=== PATIENT | female | born 1950 | race Caucasian/White ===

== ENCOUNTER 2017-11-13 17:36 | Emergency (ER) | payer OTHER ==
[2017-11-13 17:55] VITALS: BP 138/61; PULSE 81; TEMP 98.1; BMI 23.8
--- NOTE | 2017-11-13 19:27 | PDOC ---
History of Present Illness - General Chief Complaint: Pain Stated Complaint: CHRONIC ABDOMINAL PAIN WITH NAUSEA Time Seen by Provider: 11/13/17 19:25 - History of Present Illness Initial Comments: 11/13/17 20:19 Patient left the ED prior to my evaluation. Past History - Past Medical History Allergies/Adverse Reactions: Allergies Allergy/AdvReac Type Severity Reaction Status Date / Time Penicillins Allergy Verified 11/13/17 17:39 Home Medications: Ambulatory Orders Acetaminophen [Tylenol] 325 mg PO PRN 11/13/17 Amlodipine Besylate 5 mg PO DAILY 11/13/17 Bupropion HCl [Wellbutrin Xl] 300 mg PO DAILY 11/13/17 Clonazepam [Klonopin] 1 mg PO BID 11/13/17 Esomeprazole Magnesium [Nexium 24Hr] 20 mg PO DAILY 11/13/17 Sitagliptin Phosphate [Januvia] 25 mg PO DAILY 11/13/17 Trazodone HCl 1 tab PO DAILY 11/13/17 COPD: No Diabetes: Yes HTN: Yes Hypercholesterolemia: Yes Psychiatric Problems: Yes (DEPRESSION, ANXIETY) - Suicide/Smoking/Psychosocial Hx Smoking Status: No Smoking History: Never smoked Have you smoked in the past 12 months: No Number of Cigarettes Smoked Daily: 0 Information on smoking cessation initiated: No Hx Alcohol Use: No Drug/Substance Use Hx: No Substance Use Type: None *Physical Exam - Vital Signs Last Vital Signs Temp Pulse Resp BP Pulse Ox 98.1 F 81 16 138/61 100 11/13/17 17:38 11/13/17 17:38 11/13/17 17:38 11/13/17 17:38 11/13/17 17:38 *DC/Admit/Observation/Transfer Diagnosis at time of Disposition: Abdominal pain Qualifiers: Abdominal location: unspecified location Qualified Code(s): R10.9 - Unspecified abdominal pain - Discharge Dispostion Disposition: ELOPED Condition at time of disposition: Stable - Referrals - Patient Instructions - Post Discharge Activity
== END 2017-11-14 03:30 | disposition left against medical advice (07) ==
LOC: FER 17:36
DX: R10.9 Unspecified abdominal pain (principal)
CPT/HCPCS: 99281-25; 99282-25

== ENCOUNTER 2017-12-05 04:43 | Inpatient (IN) | payer OTHER ==
[2017-12-05 04:59] VITALS: BMI 27.4
--- NOTE | 2017-12-05 05:20 | PDOC ---
Attending Attestation - Resident Resident Name: Jason Serrano - ED Attending Attestation I have performed the following: I have examined & evaluated the patient, The case was reviewed & discussed with the resident, I agree w/resident's findings & plan, Exceptions are as noted - HPI HPI: 12/05/17 05:17 67 yo F h/o HTN, Depression, chronic abdominal pain Pt presents to the ER s/p seizure like activity Pt noted by daughter to be shaking lasting 1 minute (+) coffee ground emesis This occurred 1 mo ago, s/p work up at [facility] (unclear what happened) Pt daly h/o chronic abdominal pain (s/p work up) - Physicial Exam PE: 12/05/17 05:19 Pt is awake appears confused but she does answer questions Pt has dried blood at her mouth and on her night clothing RRR CTA diffuse abdominal tenderness to palpation No involuntary guarding or rebound 12/05/17 08:13 - Medical Decision Making 12/05/17 08:24 Pt EKG: SR rate of 88 bpm, axis nml, no st elevation or depression, QTc prolonged 508ms 12/05/17 08:27 Laboratory Tests 12/05/17 12/05/17 12/05/17 05:25 05:25 05:55 WBC 13.4 H Hgb 14.2 Hct 44.2 Plt Count 215 BUN 17 Creatinine 0.8 Random Glucose 307 H* Lactic Acid Ammonia Troponin I < 0.02 Stool Occult Blood Negative 12/05/17 12/05/17 05:55 05:55 WBC Hgb Hct Plt Count BUN Creatinine Random Glucose Lactic Acid 4.1 H* Ammonia 20.40 Troponin I Stool Occult Blood Pending CT head Pending CT abd and pelvis Signed out to Dr. De La Paz Clinical Impression: Altered Mental Status
[2017-12-05] MEDS ORDERED: SODIUM CHLORIDE 1,000 ML IV STA (05:23)
--- NOTE | 2017-12-05 05:26 | PDOC ---
History of Present Illness - General Chief Complaint: Seizure Stated Complaint: SEIZURE Time Seen by Provider: 12/05/17 05:03 - History of Present Illness Initial Comments: 12/05/17 05:24 Senegalese speaking pt. pt is somnolent. hx obtained from daughter 67 yo F h/o DM, Depression, chronic abdominal pain?, presents to the ED s/p seizure like episode w/ what appears to be coffee ground emesis. Pt was in bed and was noted by daughter to be shaking lasting 1 minute. pt was noted to fall from bed. pt had coffee ground emesis. Similar episode occurred 1 mo ago, s/p work up at [facility] in [place] (unclear what happened), per daughter everything was nl. Pt daly h/o chronic abdominal pain (s/p work up), per daughter had ct abd and egd was nl. pt has been in good health recently. denies fevers, chills, cp, sob, urinary sxs , diarrhea, dizziness. SH: denies smoke etoh drugs meds: klonopin, wellbutrin trazadone Past History - Past Medical History Allergies/Adverse Reactions: Allergies Allergy/AdvReac Type Severity Reaction Status Date / Time Penicillins Allergy Verified 12/05/17 04:54 Home Medications: Ambulatory Orders Bupropion HCl [Wellbutrin Xl] 300 mg PO DAILY 11/13/17 Clonazepam [Klonopin] 1 mg PO BID 11/13/17 Esomeprazole Magnesium [Nexium 24Hr] 20 mg PO DAILY 11/13/17 Sitagliptin Phosphate [Januvia] 25 mg PO DAILY 11/13/17 Trazodone HCl 1 tab PO DAILY 11/13/17 COPD: No Diabetes: Yes HTN: Yes Hypercholesterolemia: Yes Psychiatric Problems: Yes (DEPRESSION, ANXIETY) - Suicide/Smoking/Psychosocial Hx Smoking Status: No Smoking History: Unknown if ever smoked Have you smoked in the past 12 months: No Number of Cigarettes Smoked Daily: 0 Hx Alcohol Use: No Drug/Substance Use Hx: No Substance Use Type: None Review of Systems - Review of Systems Constitutional: Yes: See HPI HEENTM: Yes: See HPI Respiratory: Yes: See HPI Cardiac (ROS): Yes: See HPI ABD/GI: Yes: See HPI : Yes: See HPI Musculoskeletal: Yes: See HPI Integumentary: Yes: See HPI Neurological: Yes: See HPI Endocrine: Yes: See HPI Hematologic/Lymphatic: Yes: See HPI *Physical Exam - Vital Signs Last Vital Signs Temp Pulse Resp BP Pulse Ox 97.3 F L 89 18 167/73 96 12/05/17 04:53 12/05/17 04:53 12/05/17 04:53 12/05/17 04:53 12/05/17 04:53 - Physical Exam Comments: 12/05/17 05:36 General: Well-nourished, confused, somnolent, minimally responsive, minimal verbal, coffee ground emesis on mouth and clothing HEENT: NCAT, MMM Neck: supple no lymphadenopathy Respiratory: mild crackles b/l cardio: RRR S1 S2 no m/r/g. Abdomen: +BS , soft, NTND. Extremities: radial 2+ b/l. Warm, dry, no cyanosis, edema, clubbing or calf tenderness. Skin: intact, no rashes Neuro: somnolent, minimally responsive, poor effort for strength but moves all limbs Psych: somnolent, minimally responsive ED Treatment Course - LABORATORY CBC & Chemistry Diagram: 12/05/17 05:25 12/05/17 05:25 - RADIOLOGY Radiology Studies Ordered: Category Date Time Status HEAD CT WITHOUT CONTRAST [CT] Stat CT Scan 12/05/17 05:05 Ordered CHEST X-RAY PORTABLE* [RAD] Stat Radiology 12/05/17 05:05 Ordered Medical Decision Making - Medical Decision Making 12/05/17 05:38 67 yo F h/o DM, Depression, chronic abdominal pain?, presents to the ED s/p seizure like episode w/ what appears to be coffee ground emesis. vitals grossly wnl, afebrile, mildly hypertensive Ddx: med overdose, infx, brain bleed, GI bleed, lyte abnl, metabolic -CBC, CMP, lactic, trop, EKG, CXR, UA, Ucx, U-tox, ammonia, type and screen, PT/ INR -CT head -CT A/P -FOBT -IVF bolus -IV protonix 12/05/17 07:08 leukocytosis 13 lactic [address] Hamilton f/u labs and imaging *DC/Admit/Observation/Transfer Diagnosis at time of Disposition: Seizure - Referrals - Patient Instructions - Post Discharge Activity
[2017-12-05 05:45] LABS: BASO % 0.3 % (0-2.0); EOS % 0.1 % (0-4.5); HEMATOCRIT 44.2 % (32.4-45.2); HEMOGLOBIN 14.2 GM/dL (10.7-15.3); LYMPH % 7.6 % (8-40); MCH 27.4 pg (25.7-33.7); MCHC 32.1 g/dl (32.0-36.0); MEAN CELL VOLUME 85.2 fl (80-96); MEAN PLT VOLUME 10.4 fl (7.5-11.1); MONO % 4.9 % (3.8-10.2); NEUT % 87.1 % (42.8-82.8); PLATELET COUNT 215 K/MM3 (134-434); RBC 5.19 M/mm3 (3.60-5.2); RDW 14.5 % (11.6-15.6); WHITE BLOOD COUNT 13.4 K/mm3 (4.0-10.0)
[2017-12-05] MEDS ORDERED: PANTOPRAZOLE SODIUM 40 MG VIAL IVPUSH ONE (05:53)
[2017-12-05] MEDS ORDERED: PANTOPRAZOLE SODIUM 40 MG VIAL ONE (06:10)
[2017-12-05 06:19] LABS: ALBUMIN 3.8 g/dl (3.4-5.0); ALK PHOS 84 U/L (45-117); ANION GAP 10 MMOL/L (8-16); BILIRUBIN,TOTAL 0.5 mg/dL (0.2-1); BLOOD UREA NITROGEN 17 mg/dL (7-18); CALCIUM 9.7 mg/dL (8.5-10.1); CHLORIDE 99 mmol/L (98-107); CO2 27 mmol/L (21-32); CREATININE 0.8 mg/dL (0.55-1.3); POTASSIUM 4.3 mmol/L (3.5-5.1); SGOT/AST 22 U/L (15-37); SGPT/ALT 53 U/L (13-61); SODIUM 136 mmol/L (136-145); TOT PROT 7.4 g/dl (6.4-8.2)
[2017-12-05 06:24] LABS: GLUCOSE,RANDOM 307 mg/dL (74-106)
[2017-12-05 06:48] LABS: INR 1.03 (0.83-1.09); PROTHROMBIN TIME (PATIENT) 12.1 SEC (9.7-13.0)
--- NOTE | 2017-12-05 07:09 | PDOC ---
*Physical Exam - Vital Signs Last Vital Signs Temp Pulse Resp BP Pulse Ox 97.3 F L 89 18 167/73 96 12/05/17 04:53 12/05/17 04:53 12/05/17 04:53 12/05/17 04:53 12/05/17 05:39 <Angelique Moore - Last Filed: 12/05/17 11:24> - Vital Signs Last Vital Signs Temp Pulse Resp BP Pulse Ox 97.3 F L 89 18 167/73 96 12/05/17 04:53 12/05/17 04:53 12/05/17 04:53 12/05/17 04:53 12/05/17 05:39 - Physical Exam Comments: 12/05/17 21:57 GENERAL: Awake, alert, and fully oriented, in no acute distress HEAD: No signs of trauma, normocephalic, atraumatic EYES: PERRLA, EOMI, sclera anicteric, conjunctiva clear ENT: Auricles normal inspection, hearing grossly normal, nares patent, oropharynx clear without exudates. Moist mucosa NECK: Normal ROM, supple, no lymphadenopathy, JVD, or masses LUNGS: No distress, speaks full sentences, clear to auscultation bilaterally HEART: Regular rate and rhythm, normal S1 and S2, no murmurs, rubs or gallops, peripheral pulses normal and equal bilaterally. ABDOMEN: Soft, nontender, normoactive bowel sounds. No guarding, no rebound. No masses EXTREMITIES : Normal inspection, Normal range of motion, no edema. No clubbing or cyanosis. NEUROLOGICAL: Cranial nerves II through XII grossly intact. Normal speech, normal gait, no focal sensorimotor deficits SKIN: Warm, Dry, normal turgor, no rashes or lesions noted <Brenda Hamilton - Last Filed: 12/05/17 21:58> ED Treatment Course - LABORATORY CBC & Chemistry Diagram: 12/05/17 05:25 12/05/17 05:25 - ADDITIONAL ORDERS Additional order review: Laboratory Results 12/05/17 12/05/17 12/05/17 08:15 08:15 05:55 PT with INR INR Sodium Potassium Chloride Carbon Dioxide Anion Gap BUN Creatinine Creat Clearance w eGFR Random Glucose Lactic Acid Calcium Total Bilirubin AST ALT Alkaline Phosphatase Ammonia 20.40 Troponin I Total Protein Albumin Urine Color Straw Urine Appearance Clear Urine pH 7.0 Ur Specific [place] 1.010 Urine Protein Negative Urine Glucose (UA) 3+ H Urine Ketones Negative Urine Blood Negative Urine Nitrite Negative Urine Bilirubin Negative Urine Urobilinogen Negative Ur Leukocyte Esterase Negative Stool Occult Blood Opiates Screen Negative Methadone Screen Negative Barbiturate Screen Negative Phencyclidine Screen Negative Ur Amphetamines Screen Negative Benzodiazepines Screen Negative Cocaine Screen Negative U Marijuana (THC) Screen Negative Blood Type Antibody Screen 12/05/17 12/05/17 12/05/17 05:55 05:55 05:55 PT with INR 12.10 INR 1.03 Sodium Potassium Chloride Carbon Dioxide Anion Gap BUN Creatinine Creat Clearance w eGFR Random Glucose Lactic Acid 4.1 H* Calcium Total Bilirubin AST ALT Alkaline Phosphatase Ammonia Troponin I Total Protein Albumin Urine Color Urine Appearance Urine pH Ur Specific [place] Urine Protein Urine Glucose (UA) Urine Ketones Urine Blood Urine Nitrite Urine Bilirubin Urine Urobilinogen Ur Leukocyte Esterase Stool Occult Blood Opiates Screen Methadone Screen Barbiturate Screen Phencyclidine Screen Ur Amphetamines Screen Benzodiazepines Screen Cocaine Screen U Marijuana (THC) Screen Blood Type A POSITIVE Antibody Screen Negative 12/05/17 12/05/17 05:55 05:25 PT with INR INR Sodium 136 Potassium 4.3 Chloride 99 Carbon Dioxide 27 Anion Gap 10 BUN 17 Creatinine 0.8 Creat Clearance w eGFR > 60 Random Glucose 307 H* Lactic Acid Calcium 9.7 Total Bilirubin 0.5 AST 22 ALT 53 Alkaline Phosphatase 84 Ammonia Troponin I < 0.02 Total Protein 7.4 Albumin 3.8 Urine Color Urine Appearance Urine pH Ur Specific [place] Urine Protein Urine Glucose (UA) Urine Ketones Urine Blood Urine Nitrite Urine Bilirubin Urine Urobilinogen Ur Leukocyte Esterase Stool Occult Blood Negative Opiates Screen Methadone Screen Barbiturate Screen Phencyclidine Screen Ur Amphetamines Screen Benzodiazepines Screen Cocaine Screen U Marijuana (THC) Screen Blood Type Antibody Screen 12/05/17 05:25 RBC 5.19 MCV 85.2 MCHC 32.1 RDW 14.5 MPV 10.4 D Neutrophils % 87.1 H D Lymphocytes % 7.6 L D Monocytes % 4.9 Eosinophils % 0.1 D Basophils % 0.3 - Medications Given in the ED: ED Medications Discontinued Medications Generic Name Dose Route Start Last Admin Trade Name Freq PRN Reason Stop Dose Admin Sodium Chloride 1,000 mls @ 1,000 mls/hr 12/05/17 05:23 12/05/17 05:43 Normal Saline - IV 12/05/17 06:22 1,000 mls/hr ASDIR STA Administration Ondansetron HCl 4 mg 12/05/17 08:10 12/05/17 08:42 Zofran Injection IVPUSH 12/05/17 08:11 4 mg ONCE ONE Administration Pantoprazole Sodium 40 mg 12/05/17 05:53 12/05/17 06:16 Protonix Iv IVPUSH 12/05/17 05:54 40 mg ONCE ONE Administration Sodium Chloride 2,041 ml 12/05/17 07:15 12/05/17 08:18 Normal Saline - 30 ml/kg (2041 ml) 12/05/17 07:16 2,041 ml IV Administration ONCE STA <Angelique Moore - Last Filed: 12/05/17 11:24> - LABORATORY CBC & Chemistry Diagram: 12/05/17 17:00 12/05/17 05:25 - ADDITIONAL ORDERS Additional order review: Laboratory Results 12/05/17 12/05/17 12/05/17 05:55 05:55 05:25 Sodium 136 Potassium 4.3 Chloride 99 Carbon Dioxide 27 Anion Gap 10 BUN 17 Creatinine 0.8 Creat Clearance w eGFR > 60 Random Glucose 307 H* Lactic Acid 4.1 H* Calcium 9.7 Total Bilirubin 0.5 AST 22 ALT 53 Alkaline Phosphatase 84 Ammonia 20.40 Troponin I < 0.02 Total Protein 7.4 Albumin 3.8 12/05/17 05:25 RBC 5.19 MCV 85.2 MCHC 32.1 RDW 14.5 MPV 10.4 D Neutrophils % 87.1 H D Lymphocytes % 7.6 L D Monocytes % 4.9 Eosinophils % 0.1 D Basophils % 0.3 - Medications Given in the ED: ED Medications Discontinued Medications Generic Name Dose Route Start Last Admin Trade Name Freq PRN Reason Stop Dose Admin Sodium Chloride 1,000 mls @ 1,000 mls/hr 12/05/17 05:23 12/05/17 05:43 Normal Saline - IV 12/05/17 06:22 1,000 mls/hr ASDIR STA Administration Pantoprazole Sodium 40 mg 12/05/17 05:53 12/05/17 06:16 Protonix Iv IVPUSH 12/05/17 05:54 40 mg ONCE ONE Administration <Brenda Hamilton - Last Filed: 12/05/17 21:58> Medical Decision Making - Medical Decision Making 12/05/17 09:34 Dr. Garcia was paged and notified via phone service. 12/05/17 09:36 Dr. Lujan was paged overhead. Second overhead page was placed at 10:00. 12/05/17 10:14 Dr. Lujan was paged and notified via phone service. 12/05/17 11:24 ICU page sent. <Angelique Moore - Last Filed: 12/05/17 11:24> - Medical Decision Making 12/05/17 07:07 Patient signed out by Dr. Serrano. In short this patient has a history of depression and diabetes who presents with new onset seizure, coffee ground emesis and 1 month of lethargy. ED Course: Lactic acid of 4.1 WBC: 13.1 The patient is sometimes alert at bedside, occasionally incoherent. Per daughter the patient has not been acting like herself for the past month, since she has returned from [place]. At bedside the patient Patient drank entire bottle of pepto bismol prior to arrival 12/05/17 11:18 ICU contacted. Will assess pt <Brenda Hamilton - Last Filed: 12/05/17 21:58> *DC/Admit/Observation/Transfer <Angelique Moore - Last Filed: 12/05/17 11:24> <Brenda Hamilton - Last Filed: 12/05/17 21:58> Diagnosis at time of Disposition: Seizure
[2017-12-05] MEDS ORDERED: SODIUM CHLORIDE 0.9% 1000 ML INFUS.BAG IV STA (07:15)
[2017-12-05] MEDS ORDERED: SODIUM CHLORIDE 1,000 ML IV SCH ×2 (07:15→11:30)
[2017-12-05] MEDS ORDERED: ONDANSETRON 4 MG/2 ML VIAL IVPUSH ONE (08:10)
[2017-12-05 08:32] LABS: URINE APPEARANCE CLEAR; URINE BILIRUBIN NEGATIVE (<2.0 mg/dL); URINE COLOR STRAW; URINE GLUCOSE (UA) 3+ (NEGATIVE); URINE KETONE NEGATIVE (NEGATIVE); URINE LEUK ESTERASE NEGATIVE (NEGATIVE); URINE NITRITE NEGATIVE (NEGATIVE); URINE PROTEIN NEGATIVE (NEGATIVE); URINE UROBILINOGEN NEGATIVE mg/dL (0.2-1.0)
[2017-12-05] MEDS ORDERED: ONDANSETRON 4 MG/2 ML VIAL ONE (08:39)
[2017-12-05 09:02] LABS: COCAINE, UR NEGATIVE ng/ml (CUTOFF=300); METHADONE, UR NEGATIVE ng/ml (CUTOFF=300); OPIATES, URI NEGATIVE ng/ml (CUTOFF=300); PHENCYCLIDINE,URINE NEGATIVE ng/ml (CUTOFF=25); URINE AMPHETAMINES NEGATIVE ng/ml (CUTOFF=500); URINE BARBITURATES NEGATIVE ng/ml (CUTOFF=200); URINE BENZODIAZEPINES NEGATIVE ng/ml (CUTOFF=200)
[2017-12-05] MEDS ORDERED: MEROPENEM 1 GM in DEXTROSE 5%-WATER 100 ML IVPB ONE (09:13)
--- NOTE | 2017-12-05 09:20 | EKG ---
Test Reason : Blood Pressure : / mmHG Vent. Rate : 088 BPM Atrial Rate : 088 BPM P-R Int : 194 ms QRS Dur : 098 ms QT Int : 420 ms P-R-T Axes : 077 001 059 degrees QTc Int : 508 ms NORMAL SINUS RHYTHM PROLONGED QT ABNORMAL ECG NO PREVIOUS ECGS AVAILABLE Confirmed by ARYA GARCIA, KAMRYN ([id number]) on 12/05/2017 9:20:36 AM Referred By: Confirmed By:KAMRYN KOENIG MD
--- NOTE | 2017-12-05 10:57 | HP ---
CHIEF COMPLAINT:lethargy vomiting shaking PCP: HISTORY OF PRESENT ILLNESS: 67F with history of DM chronic abdominal pain and depression presents to the hospital with her daughter early this morning due to vomiting blood, possible seizure, and lethargy. The patient is lethargic and history taken from ED staff , chart, and daughter. Per the daughter the patient has been suffering from depression for a very long time. She states the patient has been moving between the 3 different [facility] houses between [place], [place], and [place] and keeps getting into fights with her family. Her daughter states last night they were arguing over credit card debt and then around midnight she heard her mother fall in the kitchen and saw her shaking. Daughter states her mom tried to kill herself in the past with rat poison. She keeps all pills hidden from her mom and out of the wellbutrin klonopin nexium januvia and trazadone the daughter believes she has accounted for all the pills as she is the one who gives her her medications. The patient started to have coffee grounds emesis while I was interviewing her. In the ER her lab abnormalities were noted for a lactic acidosis of 4.1 which went up to 5.1 after 3L of IVF. Per daughter she was hospitalized in [place] for shaking and coffee ground emesis but does not know the results because she did not speak to the patient about it or her sister whom the patient was staying with at the time. ER course was notable for: (1)Labs (2)IVF (3)Head CT Abdominal CT CXR Recent Travel:Denies PAST MEDICAL HISTORY:DM Depression PAST SURGICAL HISTORY:Could not ask Social History: Smoking:Could not assess Alcohol:could not assess Drugs: could not assess Family History: Allergies Penicillins Allergy (Verified 12/05/17 04:54) HOME MEDICATIONS: Home Medications Medication Instructions Recorded Bupropion HCl [Wellbutrin Xl] 300 mg PO DAILY 11/13/17 Clonazepam [Klonopin] 1 mg PO BID 11/13/17 Esomeprazole Magnesium [Nexium 20 mg PO DAILY 11/13/17 24Hr] Sitagliptin Phosphate [Januvia] 25 mg PO DAILY 11/13/17 Trazodone HCl 1 tab PO DAILY 11/13/17 REVIEW OF SYSTEMS Per daughter Patient too lethargic to answer questions. Positive for Coffee ground emesis Shaking lethargy PHYSICAL EXAMINATION Vital Signs - 24 hr 12/05/17 12/05/17 04:53 05:39 Temperature 97.3 F L Pulse Rate 89 Respiratory 18 Rate Blood Pressure 167/73 O2 Sat by Pulse 96 96 Oximetry (%) GENERAL: Lethargic. opens eyes to stimulation mumbles a few words and goes back to sleep. Woke up to vomit coffee grounds and went back to sleep. HEAD: Normal with no signs of trauma. EYES: Pupils equal, round and reactive to light EARS, NOSE, THROAT: Dried dark vomit around the mouth NECK:No JVD LUNGS: Breath sounds equal, clear to auscultation bilaterally HEART: Regular rate and rhythm, normal S1 and S2 ABDOMEN: Soft, nontender. UPPER EXTREMITIES: warm, well-perfused. No peripheral edema. LOWER EXTREMITIES: warm, well-perfused. No peripheral edema. NEUROLOGICAL: Could not neurologically be assess. lethargic. PSYCHIATRIC: lethargic SKIN: Warm, dry Laboratory Results - last 24 hr 12/05/17 12/05/17 12/05/17 05:25 05:25 05:55 WBC 13.4 H RBC 5.19 Hgb 14.2 Hct 44.2 MCV 85.2 MCH 27.4 MCHC 32.1 RDW 14.5 Plt Count 215 MPV 10.4 D Absolute Neuts (auto) 11.7 H Neutrophils % 87.1 H D Lymphocytes % 7.6 L D Monocytes % 4.9 Eosinophils % 0.1 D Basophils % 0.3 Nucleated RBC % 0 PT with INR INR Sodium 136 Potassium 4.3 Chloride 99 Carbon Dioxide 27 Anion Gap 10 BUN 17 Creatinine 0.8 Creat Clearance w eGFR > 60 Random Glucose 307 H* Lactic Acid Calcium 9.7 Total Bilirubin 0.5 AST 22 ALT 53 Alkaline Phosphatase 84 Ammonia Troponin I < 0.02 Total Protein 7.4 Albumin 3.8 Urine Color Urine Appearance Urine pH Ur Specific [place] Urine Protein Urine Glucose (UA) Urine Ketones Urine Blood Urine Nitrite Urine Bilirubin Urine Urobilinogen Ur Leukocyte Esterase Stool Occult Blood Negative Opiates Screen Methadone Screen Barbiturate Screen Phencyclidine Screen Ur Amphetamines Screen MDMA (Ecstasy) Screen Benzodiazepines Screen Cocaine Screen U Marijuana (THC) Screen Blood Type Antibody Screen 12/05/17 12/05/17 12/05/17 05:55 05:55 05:55 WBC RBC Hgb Hct MCV MCH MCHC RDW Plt Count MPV Absolute Neuts (auto) Neutrophils % Lymphocytes % Monocytes % Eosinophils % Basophils % Nucleated RBC % PT with INR 12.10 INR 1.03 Sodium Potassium Chloride Carbon Dioxide Anion Gap BUN Creatinine Creat Clearance w eGFR Random Glucose Lactic Acid 4.1 H* Calcium Total Bilirubin AST ALT Alkaline Phosphatase Ammonia Troponin I Total Protein Albumin Urine Color Urine Appearance Urine pH Ur Specific [place] Urine Protein Urine Glucose (UA) Urine Ketones Urine Blood Urine Nitrite Urine Bilirubin Urine Urobilinogen Ur Leukocyte Esterase Stool Occult Blood Opiates Screen Methadone Screen Barbiturate Screen Phencyclidine Screen Ur Amphetamines Screen MDMA (Ecstasy) Screen Benzodiazepines Screen Cocaine Screen U Marijuana (THC) Screen Blood Type A POSITIVE Antibody Screen Negative 12/05/17 12/05/17 12/05/17 05:55 08:15 08:15 WBC RBC Hgb Hct MCV MCH MCHC RDW Plt Count MPV Absolute Neuts (auto) Neutrophils % Lymphocytes % Monocytes % Eosinophils % Basophils % Nucleated RBC % PT with INR INR Sodium Potassium Chloride Carbon Dioxide Anion Gap BUN Creatinine Creat Clearance w eGFR Random Glucose Lactic Acid Calcium Total Bilirubin AST ALT Alkaline Phosphatase Ammonia 20.40 Troponin I Total Protein Albumin Urine Color Straw Urine Appearance Clear Urine pH 7.0 Ur Specific [place] 1.010 Urine Protein Negative Urine Glucose (UA) 3+ H Urine Ketones Negative Urine Blood Negative Urine Nitrite Negative Urine Bilirubin Negative Urine Urobilinogen Negative Ur Leukocyte Esterase Negative Stool Occult Blood Opiates Screen Negative Methadone Screen Negative Barbiturate Screen Negative Phencyclidine Screen Negative Ur Amphetamines Screen Negative MDMA (Ecstasy) Screen Positive A* Benzodiazepines Screen Negative Cocaine Screen Negative U Marijuana (THC) Screen Negative Blood Type Antibody Screen 12/05/17 09:53 WBC RBC Hgb Hct MCV MCH MCHC RDW Plt Count MPV Absolute Neuts (auto) Neutrophils % Lymphocytes % Monocytes % Eosinophils % Basophils % Nucleated RBC % PT with INR INR Sodium Potassium Chloride Carbon Dioxide Anion Gap BUN Creatinine Creat Clearance w eGFR Random Glucose Lactic Acid 5.1 H* Calcium Total Bilirubin AST ALT Alkaline Phosphatase Ammonia Troponin I Total Protein Albumin Urine Color Urine Appearance Urine pH Ur Specific [place] Urine Protein Urine Glucose (UA) Urine Ketones Urine Blood Urine Nitrite Urine Bilirubin Urine Urobilinogen Ur Leukocyte Esterase Stool Occult Blood Opiates Screen Methadone Screen Barbiturate Screen Phencyclidine Screen Ur Amphetamines Screen MDMA (Ecstasy) Screen Benzodiazepines Screen Cocaine Screen U Marijuana (THC) Screen Blood Type Antibody Screen EKG: SR rate of 88 bpm, axis nml, no st elevation or depression, QTc prolonged 508ms CXR: Clear. Increased congestion CTAP:No acute pathology Head CT: No acute pathology ASSESSMENT/PLAN: 67F with history of DM, chronic abdominal pain, and severe depression presents to the hospital with AMS, lethargy, coffee ground emesis, and lactic acidosis. r/o sepsis in the setting of lactic acidosis and leukocytosis with lethargy. Likely due to drug overdose Doubt sepsis Patient afebrile CXR clear UA Negative f/u BCx f/u UCx LR @ 125ml/hr already got 3L in ER Trend lactic acid could be elevated due to seizure AMS: Could likely be due to drug overdose do not suspect sepsis Unknown drug patient's daughter to go back home and look at the medications and see if she took them in excess ED to call poison control will send salicylate level get Lyme Alcohol level Acetaminophen level Serum/Urine OSM Methanol Level MDMA positive - denies MDMA use. ? if wellbutrin or one of her other home meds can cause false positives get ABG ICU Admission-Spoke to Dr. Elliott Coffee grounds emesis: Witnessed also saw clothes from patient;s house as daughter brought them and there is some red tinged vomit GI consult CBC stable Trend CBC Protonix 40mg IV BID prolonged qtc: could be a side effect of medication overdose repeat ekg and trend avoid drugs that prolong qtc Possible seizure: Will start keppra 500mg IV BID neurology consult lactic acid elevated could be due to seizure DM: ISS Q6h BGM Q6h NPO for now Severe depression: Possible suicide attempt with medication OD Psychiatry consult 1:1 FEN: LR @ 125ml/hr no electrolyte issues NPO for now PPx: SCDs-no chemical PPx given coffee grounds emesis protonix 40mg IV BID PT consult when able to participate Case discussed with attending Dr. Recio Rest of care per ICU team Visit type - Emergency Visit Emergency Visit: Yes ED Registration Date: 12/05/17 Care time: The patient presented to the Emergency Department on the above date and was hospitalized for further evaluation of their emergent condition. - New Patient This patient is new to me today: Yes Date on this admission: 12/05/17 - Critical Care Critical Care patient: Yes Total Critical Care Time (in minutes): 60 Critical Care Statement: The care of this patient involved high complexity decision making to prevent further life threatening deterioration of the patient 's condition and/or to evaluate & treat vital organ system(s) failure or risk of failure.
--- NOTE | 2017-12-05 11:32 | PDOC ---
*Physical Exam - Vital Signs Last Vital Signs Temp Pulse Resp BP Pulse Ox 97.3 F L 91 H 21 H 171/84 H 98 12/05/17 04:53 12/05/17 11:05 12/05/17 11:05 12/05/17 11:05 12/05/17 11:05 - Physical Exam Comments: 12/05/17 11:28 Vitals: Triage Vital signs reviewed General Appearance: no acute distress, well nourished well developed, Cardiac: Regular rate and rhythym, no murmurs, no rubs, no gallops, Lungs: Clear to auscultation bilateral, good air movement bilaterally, Abdomen: Soft, non distended, normal bowel sounds, non tender to palpation Extremities: Full range of motion to all extremities, no cyanosis, clubbing, or edema Skin: Warm and dry, no rashes or lesions, no rash, no petechiae Neuro: Cranial Nerves 2-12 grossly intact, Strength intact to all extremities, Sensation intact to all extremities Psych: normal mood, normal affect ED Treatment Course - LABORATORY CBC & Chemistry Diagram: 12/05/17 05:25 12/05/17 05:25 - ADDITIONAL ORDERS Additional order review: Laboratory Results 12/05/17 12/05/17 12/05/17 09:53 09:53 08:15 PT with INR INR Sodium Potassium Chloride Carbon Dioxide Anion Gap BUN Creatinine Creat Clearance w eGFR Random Glucose Lactic Acid 5.1 H* Calcium Total Bilirubin AST ALT Alkaline Phosphatase Ammonia Troponin I Total Protein Albumin Urine Color Urine Appearance Urine pH Ur Specific [place] Urine Protein Urine Glucose (UA) Urine Ketones Urine Blood Urine Nitrite Urine Bilirubin Urine Urobilinogen Ur Leukocyte Esterase Stool Occult Blood Opiates Screen Negative Methadone Screen Negative Barbiturate Screen Negative Phencyclidine Screen Negative Ur Amphetamines Screen Negative MDMA (Ecstasy) Screen Positive A* Benzodiazepines Screen Negative Cocaine Screen Negative U Marijuana (THC) Screen Negative Blood Type A POSITIVE Antibody Screen 12/05/17 12/05/17 12/05/17 08:15 05:55 05:55 PT with INR INR Sodium Potassium Chloride Carbon Dioxide Anion Gap BUN Creatinine Creat Clearance w eGFR Random Glucose Lactic Acid Calcium Total Bilirubin AST ALT Alkaline Phosphatase Ammonia 20.40 Troponin I Total Protein Albumin Urine Color Straw Urine Appearance Clear Urine pH 7.0 Ur Specific [place] 1.010 Urine Protein Negative Urine Glucose (UA) 3+ H Urine Ketones Negative Urine Blood Negative Urine Nitrite Negative Urine Bilirubin Negative Urine Urobilinogen Negative Ur Leukocyte Esterase Negative Stool Occult Blood Opiates Screen Methadone Screen Barbiturate Screen Phencyclidine Screen Ur Amphetamines Screen MDMA (Ecstasy) Screen Benzodiazepines Screen Cocaine Screen U Marijuana (THC) Screen Blood Type A POSITIVE Antibody Screen Negative 12/05/17 12/05/17 12/05/17 05:55 05:55 05:55 PT with INR 12.10 INR 1.03 Sodium Potassium Chloride Carbon Dioxide Anion Gap BUN Creatinine Creat Clearance w eGFR Random Glucose Lactic Acid 4.1 H* Calcium Total Bilirubin AST ALT Alkaline Phosphatase Ammonia Troponin I Total Protein Albumin Urine Color Urine Appearance Urine pH Ur Specific [place] Urine Protein Urine Glucose (UA) Urine Ketones Urine Blood Urine Nitrite Urine Bilirubin Urine Urobilinogen Ur Leukocyte Esterase Stool Occult Blood Negative Opiates Screen Methadone Screen Barbiturate Screen Phencyclidine Screen Ur Amphetamines Screen MDMA (Ecstasy) Screen Benzodiazepines Screen Cocaine Screen U Marijuana (THC) Screen Blood Type Antibody Screen 12/05/17 05:25 PT with INR INR Sodium 136 Potassium 4.3 Chloride 99 Carbon Dioxide 27 Anion Gap 10 BUN 17 Creatinine 0.8 Creat Clearance w eGFR > 60 Random Glucose 307 H* Lactic Acid Calcium 9.7 Total Bilirubin 0.5 AST 22 ALT 53 Alkaline Phosphatase 84 Ammonia Troponin I < 0.02 Total Protein 7.4 Albumin 3.8 Urine Color Urine Appearance Urine pH Ur Specific [place] Urine Protein Urine Glucose (UA) Urine Ketones Urine Blood Urine Nitrite Urine Bilirubin Urine Urobilinogen Ur Leukocyte Esterase Stool Occult Blood Opiates Screen Methadone Screen Barbiturate Screen Phencyclidine Screen Ur Amphetamines Screen MDMA (Ecstasy) Screen Benzodiazepines Screen Cocaine Screen U Marijuana (THC) Screen Blood Type Antibody Screen 12/05/17 05:25 RBC 5.19 MCV 85.2 MCHC 32.1 RDW 14.5 MPV 10.4 D Neutrophils % 87.1 H D Lymphocytes % 7.6 L D Monocytes % 4.9 Eosinophils % 0.1 D Basophils % 0.3 - RADIOLOGY Radiology Studies Ordered: Category Date Time Status ABDOMEN & PELVIS CT WITH CONTR [CT] Stat CT Scan 12/05/17 05:53 Completed CHEST X-RAY PORTABLE* [RAD] Stat Radiology 12/05/17 07:15 Completed - Medications Given in the ED: ED Medications Discontinued Medications Generic Name Dose Route Start Last Admin Trade Name Freq PRN Reason Stop Dose Admin Sodium Chloride 1,000 mls @ 1,000 mls/hr 12/05/17 05:23 12/05/17 05:43 Normal Saline - IV 12/05/17 06:22 1,000 mls/hr ASDIR STA Administration Meropenem 1 gm/ Dextrose 100 mls @ 200 mls/hr 12/05/17 09:13 12/05/17 09:57 IVPB 12/05/17 09:42 200 mls/hr ONCE ONE Administration Ondansetron HCl 4 mg 12/05/17 08:10 12/05/17 08:42 Zofran Injection IVPUSH 12/05/17 08:11 4 mg ONCE ONE Administration Pantoprazole Sodium 40 mg 12/05/17 05:53 12/05/17 06:16 Protonix Iv IVPUSH 12/05/17 05:54 40 mg ONCE ONE Administration Sodium Chloride 2,041 ml 12/05/17 07:15 12/05/17 08:18 Normal Saline - 30 ml/kg (2041 ml) 12/05/17 07:16 2,041 ml IV Administration ONCE STA Medical Decision Making - Critical Care Time Total Critical Care Time (minutes): 35 Critical Care Statement: The care of this patient involved high complexity decision making to prevent further life threatening deterioration of the patient 's condition and/or to evaluate & treat vital organ system(s) failure or risk of failure. - Medical Decision Making 12/05/17 11:29 Patient signed out to me pending CAT scan head and abdomen pelvis. Questionable episode of coffee-ground emesis. 7 AM labs notable for white blood cell count of 13 and lactic acid of 4.1 no obvious source of infection but 30 mL per cake normal saline ordered CT head CT abdomen pelvis unremarkable chest x-ray and urinalysis with no evidence of infection At this point my concern is for possible toxic ingestion Patient has history of substance abuse depression and previous suicide attempts( rat poison, per the daughter). Patient denies any suicide attempts but until we can rule this out this may be the etiology of her lactic acidosis Given no rectal fever,lower suspicion for infection at this time given stable vital signs I do not believe patient to be septic although one dose of meropenem was given with initial lactic acid Patient will be admitted to the ICU for a additional workup including tox panel acetaminophen salicylate toxic alcohol levels and for further evaluation. We'll continue to trend lactic acids. GI has been consult did for coffee-ground emesis. At this time H&H stable. *DC/Admit/Observation/Transfer Diagnosis at time of Disposition: Seizure - Discharge Dispostion Decision to Admit order Date/Time: Decision to Admit Order Category Date Time Status Decision to Admit to Hospital Routine Admission 12/05/17 10:42 Active - Referrals - Patient Instructions - Post Discharge Activity
[2017-12-05 11:57] LABS: ARTERIAL BLD GAS O2 SATURATION 90.8 % (90-98.9); ARTERIAL BLOOD GAS BASE EXCESS -5.7 meq/l (-2-2); ARTERIAL BLOOD GAS PCO2 40.5 mmHg (35-45); ARTERIAL BLOOD GAS PO2 69.8 mmHg (80-100); ARTERIAL BLOOD GAS pH 7.31 (7.35-7.45); CARBOXYHEMOGLOBIN 0.7 gm% (0.5-2.0)
[2017-12-05 11:58] LABS: ALLENS TEST POSITIVE
[2017-12-05] MEDS ORDERED: LACTATED RINGERS SOLUTION 1,000 ML/1,000 ML INFUS.BAG IV SCH (12:00)
[2017-12-05] MEDS ORDERED: INSULIN SLIDING SCALE (NOVOLOG) 1 VIAL SQ SCH (12:00)
--- NOTE | 2017-12-05 12:40 | PN ---
Teaching Attending Note Name of Resident: Iman Reeves ATTENDING PHYSICIAN STATEMENT I saw and evaluated the patient. I reviewed the resident's note and discussed the case with the resident. I agree with the resident's findings and plan as documented. SUBJECTIVE: Pt seen and examined in the ER. Briefly, 67yo male with h/o DM, depression who presents s/p fall and shaking. Found to have a lactic acidosis but without fevers or leukocytosis. Witnessed to have coffee ground emesis in the ER. Currently states she does have abdominal pain but chronic pain. No shortness of breath or chest pain. OBJECTIVE: Vital Signs Period Temp Pulse Resp BP Sys/Barrett Pulse Ox Last 24 Hr 97.3 F 89-91 18-21 167-171/73-84 96-98 Intake & Output 12/02/17 12/03/17 12/04/17 12/05/17 23:59 23:59 23:59 23:59 Weight 68.039 kg Gen: NAD at rest Heart: RRR Lung: decreased breath sounds at the bases Abd: soft, nontender Ext: no edema CBC, BMP 12/05/17 05:25 12/05/17 05:25 Active Medications Chlorhexidine Gluconate (Hibiclens For Decolonization -) 1 applic TP HS IFEOMA Lactated Ringer's (Lactated Ringers Solution) 1,000 ml in 1,000 mls @ 125 mls/ hr IV ASDIR IFEOMA Last Admin: 12/05/17 12:13 Dose: 125 mls/hr Insulin Aspart (Novolog Vial Sliding Scale -) 1 vial SQ Q6H IFEOMA; Protocol Levetiracetam (Keppra Injection -) 500 mg IVPB BID IFEOMA Mupirocin (Bactroban Ointment (For Decolonization) -) 1 applic NS BID IFEOMA Stop: 12/10/17 21:59 Pantoprazole Sodium (Protonix Iv) 40 mg IVPUSH BID COUNTS INCLUDE 234 BEDS AT THE [facility] ASSESSMENT AND PLAN: Lactic Acidosis r/o GI Bleed DM Depression - continue IVF - monitor lactate - monitor H/H - glucose control - if repeat lactate and H/H stable, can monitor on floor - please call back if any change in clinical condition
--- NOTE | 2017-12-05 12:57 | CONSULT ---
Consultation: REQUESTING PROVIDER: Dr Hamilton CONSULT REQUEST: We have been asked to medically evaluate this patient for ICU admission. HISTORY OF PRESENT ILLNESS: Luz Maria Quigley is a 67yo woman with a PMH of HTN, DM, severe depression with possible psychotic features, multiple suicide attempts in the past who was brought to the ED last night by her daughter. The daughter reports that her mother fell, and she found her covered in emesis. She was shaking at the time, and her daughter feared that she was having a seizure. According to the daughter, Ms Quigley was living in [place] with a different daughter for the past year. During that time, it appears that she had a similar episode of vomiting with a negative workup. However, the daughter here is unable to give details and is not on speaking terms with her sister. On additional questioning, she reports that Ms Quigley has been poorly responsive and tired since moving back to [place]. She shakes frequently. She appears to spend all day in bed, though she is able to get up and walk when prompted. Her medications are distributed by the daughter, who keeps the bottles hidden. She takes all of the meds except risperidone, which she has not taken for approximately the past year, due to the daughter feeling that it is "too strong. " The daughter also initially reported that Ms Quigley had a whole bottle of pepto bismol, but she further explained that this was over the past several weeks. In the ED, Ms Quigley did have witnessed coffee ground emesis. Her vitals were all WNL, and her hgb was 14. She had an elevated lactate that increased from 4- 5. She additionally had a mild leukocytosis to 13. UDS was positive for MDMA though her daughter reports that she neither leaves the house nor has visitors. ICU team was asked to evaluate for admission. REVIEW OF SYSTEMS: General: No fevers, no chills, no weight or appetite change, no malaise HEENT: No congestion, no sore throat. +frequent headaches CV: No chest pain, no LE edema Pulm: No SOB, no cough, no wheezing GI: See HPI : No frequency, no urgency, no dysuria Musc: No back pain, no joint swelling, no recent injury Skin: No rash, no lesions, no erythema Endo: No excessive thirst, no heat/cold intolerance Heme: No unusual bruising or bleeding, no swollen glands Neuro: No syncope, no numbness/tingling, no focal weakness Vasc: No claudication Psych: +h/o severe depression, previous suicide attempts PHYSICAL EXAMINATION Vital Signs - 24 hr 12/05/17 12/05/17 12/05/17 04:53 05:39 11:05 Temperature 97.3 F L Pulse Rate 89 Pulse Rate [ 91 H Apical] Respiratory 18 21 H Rate Blood Pressure 167/73 Blood Pressure 171/84 H [Left] O2 Sat by Pulse 96 96 98 Oximetry (%) General: Comfortable, no acute distress HEENT: PERRL, EOMI, dry mouth and lips. Soft/hoarse voice Cards: RRR, no murmur appreciated Pulm: Comfortable on room air, clear to auscultation bilaterally Abd: Soft, nontender, moderately distended Ext: Atraumatic. No LE edema. ROM intact. Strength equal bilaterally Vasc: Extremities WWP. Skin: Normal color, no rashes or lesions Neuro: A&Ox3 (name, hospital, month), CN grossly intact, normal speech, motor/ sensory grossly intact and symmetric Psych: Appears unemotional, distant from situation, somewhat flat. Poorly responsive, one word answers only. Laboratory Results - last 24 hr 12/05/17 12/05/17 12/05/17 05:25 05:25 05:55 WBC 13.4 H RBC 5.19 Hgb 14.2 Hct 44.2 MCV 85.2 MCH 27.4 MCHC 32.1 RDW 14.5 Plt Count 215 MPV 10.4 D Absolute Neuts (auto) 11.7 H Neutrophils % 87.1 H D Lymphocytes % 7.6 L D Monocytes % 4.9 Eosinophils % 0.1 D Basophils % 0.3 Nucleated RBC % 0 PT with INR INR Anticoagulation Therapy Puncture Site ABG pH ABG pCO2 at Pt Temp ABG pO2 at Pt Temp ABG HCO3 ABG O2 Sat (Measured) ABG O2 Content ABG Base Excess [place] Test Carboxyhemoglobin Methemoglobin O2 Delivery Device Oxygen Flow Rate Vent Mode Vent Rate Mechanical Rate Pressure Support Vent Sodium 136 Potassium 4.3 Chloride 99 Carbon Dioxide 27 Anion Gap 10 BUN 17 Creatinine 0.8 Creat Clearance w eGFR > 60 POC Glucometer Random Glucose 307 H* Lactic Acid Calcium 9.7 Total Bilirubin 0.5 AST 22 ALT 53 Alkaline Phosphatase 84 Ammonia Troponin I < 0.02 Total Protein 7.4 Albumin 3.8 Urine Color Urine Appearance Urine pH Ur Specific [place] Urine Protein Urine Glucose (UA) Urine Ketones Urine Blood Urine Nitrite Urine Bilirubin Urine Urobilinogen Ur Leukocyte Esterase Stool Occult Blood Negative Opiates Screen Methadone Screen Barbiturate Screen Phencyclidine Screen Ur Amphetamines Screen MDMA (Ecstasy) Screen Benzodiazepines Screen Cocaine Screen U Marijuana (THC) Screen Blood Type Antibody Screen 12/05/17 12/05/17 12/05/17 05:55 05:55 05:55 WBC RBC Hgb Hct MCV MCH MCHC RDW Plt Count MPV Absolute Neuts (auto) Neutrophils % Lymphocytes % Monocytes % Eosinophils % Basophils % Nucleated RBC % PT with INR 12.10 INR 1.03 Anticoagulation Therapy Puncture Site ABG pH ABG pCO2 at Pt Temp ABG pO2 at Pt Temp ABG HCO3 ABG O2 Sat (Measured) ABG O2 Content ABG Base Excess [place] Test Carboxyhemoglobin Methemoglobin O2 Delivery Device Oxygen Flow Rate Vent Mode Vent Rate Mechanical Rate Pressure Support Vent Sodium Potassium Chloride Carbon Dioxide Anion Gap BUN Creatinine Creat Clearance w eGFR POC Glucometer Random Glucose Lactic Acid 4.1 H* Calcium Total Bilirubin AST ALT Alkaline Phosphatase Ammonia Troponin I Total Protein Albumin Urine Color Urine Appearance Urine pH Ur Specific [place] Urine Protein Urine Glucose (UA) Urine Ketones Urine Blood Urine Nitrite Urine Bilirubin Urine Urobilinogen Ur Leukocyte Esterase Stool Occult Blood Opiates Screen Methadone Screen Barbiturate Screen Phencyclidine Screen Ur Amphetamines Screen MDMA (Ecstasy) Screen Benzodiazepines Screen Cocaine Screen U Marijuana (THC) Screen Blood Type A POSITIVE Antibody Screen Negative 12/05/17 12/05/17 12/05/17 05:55 08:15 08:15 WBC RBC Hgb Hct MCV MCH MCHC RDW Plt Count MPV Absolute Neuts (auto) Neutrophils % Lymphocytes % Monocytes % Eosinophils % Basophils % Nucleated RBC % PT with INR INR Anticoagulation Therapy Puncture Site ABG pH ABG pCO2 at Pt Temp ABG pO2 at Pt Temp ABG HCO3 ABG O2 Sat (Measured) ABG O2 Content ABG Base Excess [place]y Test Carboxyhemoglobin Methemoglobin O2 Delivery Device Oxygen Flow Rate Vent Mode Vent Rate Mechanical Rate Pressure Support Vent Sodium Potassium Chloride Carbon Dioxide Anion Gap BUN Creatinine Creat Clearance w eGFR POC Glucometer Random Glucose Lactic Acid Calcium Total Bilirubin AST ALT Alkaline Phosphatase Ammonia 20.40 Troponin I Total Protein Albumin Urine Color Straw Urine Appearance Clear Urine pH 7.0 Ur Specific [place] 1.010 Urine Protein Negative Urine Glucose (UA) 3+ H Urine Ketones Negative Urine Blood Negative Urine Nitrite Negative Urine Bilirubin Negative Urine Urobilinogen Negative Ur Leukocyte Esterase Negative Stool Occult Blood Opiates Screen Negative Methadone Screen Negative Barbiturate Screen Negative Phencyclidine Screen Negative Ur Amphetamines Screen Negative MDMA (Ecstasy) Screen Positive A* Benzodiazepines Screen Negative Cocaine Screen Negative U Marijuana (THC) Screen Negative Blood Type Antibody Screen 12/05/17 12/05/17 12/05/17 09:53 09:53 11:45 WBC RBC Hgb Hct MCV MCH MCHC RDW Plt Count MPV Absolute Neuts (auto) Neutrophils % Lymphocytes % Monocytes % Eosinophils % Basophils % Nucleated RBC % PT with INR INR Anticoagulation Therapy No Result Required. Puncture Site Right radial ABG pH 7.31 L ABG pCO2 at Pt Temp 40.5 ABG pO2 at Pt Temp 69.8 L ABG HCO3 19.7 L ABG O2 Sat (Measured) 90.8 ABG O2 Content 15.2 ABG Base Excess -5.7 L [place]y Test Positive Carboxyhemoglobin 0.7 Methemoglobin 0.3 L O2 Delivery Device Room air Oxygen Flow Rate 21% Vent Mode No Result Required. Vent Rate No Result Required. Mechanical Rate No Result Required. Pressure Support Vent No Result Required. Sodium Potassium Chloride Carbon Dioxide Anion Gap BUN Creatinine Creat Clearance w eGFR POC Glucometer Random Glucose Lactic Acid 5.1 H* Calcium Total Bilirubin AST ALT Alkaline Phosphatase Ammonia Troponin I Total Protein Albumin Urine Color Urine Appearance Urine pH Ur Specific [place] Urine Protein Urine Glucose (UA) Urine Ketones Urine Blood Urine Nitrite Urine Bilirubin Urine Urobilinogen Ur Leukocyte Esterase Stool Occult Blood Opiates Screen Methadone Screen Barbiturate Screen Phencyclidine Screen Ur Amphetamines Screen MDMA (Ecstasy) Screen Benzodiazepines Screen Cocaine Screen U Marijuana (THC) Screen Blood Type A POSITIVE Antibody Screen 12/05/17 12:10 WBC RBC Hgb Hct MCV MCH MCHC RDW Plt Count MPV Absolute Neuts (auto) Neutrophils % Lymphocytes % Monocytes % Eosinophils % Basophils % Nucleated RBC % PT with INR INR Anticoagulation Therapy Puncture Site ABG pH ABG pCO2 at Pt Temp ABG pO2 at Pt Temp ABG HCO3 ABG O2 Sat (Measured) ABG O2 Content ABG Base Excess [place]y Test Carboxyhemoglobin Methemoglobin O2 Delivery Device Oxygen Flow Rate Vent Mode Vent Rate Mechanical Rate Pressure Support Vent Sodium Potassium Chloride Carbon Dioxide Anion Gap BUN Creatinine Creat Clearance w eGFR POC Glucometer [id number] Random Glucose Lactic Acid Calcium Total Bilirubin AST ALT Alkaline Phosphatase Ammonia Troponin I Total Protein Albumin Urine Color Urine Appearance Urine pH Ur Specific [place] Urine Protein Urine Glucose (UA) Urine Ketones Urine Blood Urine Nitrite Urine Bilirubin Urine Urobilinogen Ur Leukocyte Esterase Stool Occult Blood Opiates Screen Methadone Screen Barbiturate Screen Phencyclidine Screen Ur Amphetamines Screen MDMA (Ecstasy) Screen Benzodiazepines Screen Cocaine Screen U Marijuana (THC) Screen Blood Type Antibody Screen Active Medications Generic Name Dose Route Start Last Admin Trade Name Freq PRN Reason Stop Dose Admin Chlorhexidine Gluconate 1 applic 12/05/17 22:00 Hibiclens For Decolonization - TP HS IFEOMA Lactated Ringer's 1,000 ml in 1,000 mls @ 125 mls/hr 12/05/17 12:00 12/05/17 12:13 Lactated Ringers Solution IV 125 mls/hr ASDIR IFEOMA Administration Insulin Aspart 1 vial 12/05/17 12:17 Novolog Vial Sliding Scale - SQ Q6H [facility] Protocol Levetiracetam 500 mg 12/05/17 12:30 Keppra Injection - IVPB BID IFEOMA Mupirocin 1 applic 12/05/17 22:00 Bactroban Ointment (For Decolonization) - NS 12/10/17 21:59 BID IFEOMA Pantoprazole Sodium 40 mg 12/05/17 22:00 Protonix Iv IVPUSH BID [facility] ASSESSMENT/PLAN: Luz Maria Quigley is a 67yo woman with a PMH of HTN, DM, depression, multiple suicide attempts who presents with one month of lethargy, poor responsiveness, and tremulousness. She additionally had an episode of vomiting yesterday with what appears to be a similar episode a month ago with a negative workup. In the ED she had stable vitals, mild leukocytosis, normal hgb, and an elevated lactate to 4 that increased to 5 after 3L fluids. There was a questionable ingestion of pepto-bismol, but her daughter reports that she has been finished one bottle over two weeks. Her UDS was positive for MDMA, though this appears to more likely be a false positive if she neither leaves the house nor has visitors. Recommendations: - Please recheck lactate following additional IVF bolus - Recheck CBC to assess for hgb stability given witnessed episode of coffee ground emesis - If stable, may admit to telemetry for monitoring as there does not appear to be an acute change in her condition. Per her daughter, her symptoms have been present for at least the past month. She had a previous negative workup for similar vomiting, and her abdominal exam is benign. Her poor responsiveness may be secondary to her severe depression and non-compliance with her psychiatric medications. - Will f/u labs and update recommendations if needed. Seen and discussed with Dr Elliott. Iman Reeves PGY1 Visit type - Emergency Visit Emergency Visit: Yes ED Registration Date: 12/05/17 Care time: The patient presented to the Emergency Department on the above date and was hospitalized for further evaluation of their emergent condition. - New Patient This patient is new to me today: Yes Date on this admission: 12/05/17 - Critical Care Critical Care patient: Yes Total Critical Care Time (in minutes): 30 Critical Care Statement: The care of this patient involved high complexity decision making to prevent further life threatening deterioration of the patient 's condition and/or to evaluate & treat vital organ system(s) failure or risk of failure.
[2017-12-05] MEDS ORDERED: levETIRAcetam 500 MG/5 ML INJECTION VIAL IVPB SCH (13:00)
[2017-12-05] MEDS: INSULIN SLIDING SCALE (NOVOLOG) 1 VIAL SQ SCH ×2 (13:14→18:00)
[2017-12-05] MEDS ORDERED: levETIRAcetam 500 MG/5 ML INJECTION VIAL IVPB ONE (13:15)
[2017-12-05 14:03] LABS: BASO % 0.2 % (0-2.0); HEMATOCRIT 38.3 % (32.4-45.2); HEMOGLOBIN 12.1 GM/dL (10.7-15.3); LYMPH % 6.8 % (8-40); MCH 26.8 pg (25.7-33.7); MCHC 31.5 g/dl (32.0-36.0); MEAN CELL VOLUME 85.2 fl (80-96); MEAN PLT VOLUME 10.3 fl (7.5-11.1); MONO % 6.1 % (3.8-10.2); NEUT % 86.9 % (42.8-82.8); PLATELET COUNT 191 K/MM3 (134-434); RDW 14.4 % (11.6-15.6); WHITE BLOOD COUNT 14.4 K/mm3 (4.0-10.0)
--- NOTE | 2017-12-05 16:11 | PN ---
Teaching Attending Note Name of Resident: Pankaj Heard ATTENDING PHYSICIAN STATEMENT I saw and evaluated the patient. I reviewed the resident's note and discussed the case with the resident. I agree with the resident's findings and plan as documented. SUBJECTIVE: Patient is a 67 y/o HF with a PMH of severe depression, prior suspected GIB with aparently normal workup, difficult social situation. She is also a known NIDDM patient. She presents to the ER at the behest of her daughters due to the fact that she is unresponsive. They think she overdosed on 'something' last night between 930-1030 PM. They have no idea what she took but the family is going home to check on it. She aparently had dark emesis and was much less responsive than normal but still protecting airway, etc. She was brought to the ER and found to have a +LA with a slight metabolic acidosis on ABG but normal CO2. She was brought to the floor under the medicine service after ICU saw her and felt she didn't meet criteria. In ER LA trended up after fluids but did appropriately go down. No sz activity witnessed at hospital; doesn't sound to be classical presentation of seizure after speaking to family. FH asked and noncontributory Social: never leaves the house, depression history PMH: Per chart PSH: No recent procedures. OBJECTIVE: VSS, labs and imaging reviewed GCS 13, no FND, appears sleepy. NAD. RRR s1/2 no mgr No blood on tongue, NC AT EOMI PERRLA NT ND +BS Lungs clear with sym expansion Couldn't do full neuro examination; CN2-12 grossly intact, moving all 4 extremties, no signs she soiled herself, no focal seizure activity, reflexes wnl Psych cannot be fully assessed; aparent SI at home, difficult social setting ASSESSMENT AND PLAN: 1) AMS -Likely 2/2 ingestion +/- underlying psych issues. Protecting airway, no s/s sz activity, no focal neuro findings -Monitor and allow to metabolize, work with family to elucidate exactly what she took. She has access to multiple psych, DM meds. Normal fsg. Monitor neuro checks and place on seizure precautions 2) Suspected Seizures -Doesn't sound 100% like seizures; will monitor neuro checks and place on seizure precautions and monitor. -Defer ultimate management to neurology; now that full story clear from family will hold off AED 3) Suspected GIB -No h/o ulcers, varices, etc. Denies melanotic stool. Cannot tell me if previous endoscopy. Several episdoes of this -Trend CBC q6h; check gastric and fecal occult blood -BID IV Protonix; consider sandostatin if any concern for variceal bleed -Defer ultimate management to GI; pending consult. Their input is much appreciated. 4) SI in setting of chronic major depression -1:1; psych consult; hold meds for now -May not leave AMA 5) Leukocytosis -Likely reactive; monitor for fevers and trend CBC 6) Elevated lactate with minor metabolic acidosis -She is hemodynamically stable and afebrile with only a minor WBC count and no source; sepsis is thusly judged to be unlikely. -Could be 2/2 ingestion; it did finally trend down. Continue with IVF and trend this. 7) DM -SSI Full Code Consulting Services: GI, neurology, psychiatry
[2017-12-05 17:35] LABS: HEMATOCRIT 37.2 % (32.4-45.2); HEMOGLOBIN 11.9 GM/dL (10.7-15.3); MCH 27.6 pg (25.7-33.7); MCHC 32.1 g/dl (32.0-36.0); MEAN CELL VOLUME 86.1 fl (80-96); MEAN PLT VOLUME 10.3 fl (7.5-11.1); PLATELET COUNT 214 K/MM3 (134-434); RBC 4.32 M/mm3 (3.60-5.2); RDW 14.1 % (11.6-15.6); WHITE BLOOD COUNT 15.9 K/mm3 (4.0-10.0)
--- NOTE | 2017-12-05 18:09 | CON.GI ---
Consult Consult Specialty:: GI Referred by:: hospitalist - History of Present Illness History of Present Illness: The patient was seen in the ER with her daughter giving the history. She was doing well until this morning when she developed abdominal pain nausea and vomiting associated with change in mental status and involuntary movements. She had 1 episode of coffee ground vomitus. She denies seizure like activity. There was no fecal nor urinary incontinence,. There was no LOC,no CP and SOB. She has similar symptoms 4 weeks ago at a [facility]. She denies melena, rectal bleeding, abdominal pain in the emergency room. She has suicidal ideation and is unclear whether she has ingested any toxic materials or over dosed on any medication. - Past Medical History ...: No - Alcohol/Substance Use Hx Alcohol Use: No - Smoking History Smoking history: Never smoked Have you smoked in the past 12 months: No Aproximately how many cigarettes per day: 0 Home Medications - Allergies Allergies/Adverse Reactions: Allergies Allergy/AdvReac Type Severity Reaction Status Date / Time Penicillins Allergy Verified 12/05/17 04:54 - Home Medications Home Medications: Ambulatory Orders Bupropion HCl [Wellbutrin Xl] 300 mg PO DAILY 11/13/17 Clonazepam [Klonopin] 1 mg PO BID 11/13/17 Esomeprazole Magnesium [Nexium 24Hr] 20 mg PO DAILY 11/13/17 Sitagliptin Phosphate [Januvia] 25 mg PO DAILY 11/13/17 Trazodone HCl 1 tab PO DAILY 11/13/17 Physical Exam-GI Vital Signs: Vital Signs Temperature 97.8 F 12/05/17 15:41 Pulse Rate 87 12/05/17 15:41 Respiratory Rate 18 12/05/17 15:41 Blood Pressure 155/90 12/05/17 15:41 O2 Sat by Pulse Oximetry (%) 96 12/05/17 15:55 Constitutional: Yes: No Distress Eyes: Yes: Conjunctiva Clear HENT: Yes: Atraumatic Neck: Yes: Supple Cardiovascular: Yes: Regular Rate and Rhythm Respiratory: Yes: CTA Bilaterally ...Palpate: Yes: Soft. No: Firm/Rigid, Guarding, Hepatomegaly, Mass, Pulsatile Mass, Splenomegaly, Tenderness Labs: CBC, BMP 12/05/17 17:00 12/05/17 05:25 INR, PTT INR 1.03 (0.83-1.09) 12/05/17 05:55 Hepatic Panel Total Bilirubin 0.5 mg/dL (0.2-1) 12/05/17 05:25 AST 22 U/L (15-37) 12/05/17 05:25 ALT 53 U/L (13-61) 12/05/17 05:25 Alkaline Phosphatase 84 U/L (45-117) 12/05/17 05:25 Albumin 3.8 g/dl (3.4-5.0) 12/05/17 05:25 Problem List - Problems (1) Coffee ground emesis Assessment/Plan: r/o secondary to M-W tear, and stress gastritis R> continue IV Protonix IV Reglan 10 mg every 6 hours keep NPO Code(s): K92.0 - HEMATEMESIS
[2017-12-05] MEDS: PANTOPRAZOLE SODIUM 40 MG VIAL IVPUSH SCH (21:37)
[2017-12-05 21:57] LABS: HEMATOCRIT 36.8 % (32.4-45.2); MCH 27.5 pg (25.7-33.7); MCHC 32.6 g/dl (32.0-36.0); MEAN CELL VOLUME 84.3 fl (80-96); MEAN PLT VOLUME 10.5 fl (7.5-11.1); PLATELET COUNT 222 K/MM3 (134-434); RBC 4.37 M/mm3 (3.60-5.2); RDW 14.1 % (11.6-15.6); WHITE BLOOD COUNT 16.4 K/mm3 (4.0-10.0)
[2017-12-05] MEDS ORDERED: CHLORHEXIDINE GLUCONATE 4% CLEANSER FOR DECOLONIZATION TP SCH (22:00)
[2017-12-05] MEDS ORDERED: MUPIROCIN 2% TOPICAL OINTMENT FOR DECOLONIZATION NS SCH (22:00)
[2017-12-06] MEDS: INSULIN SLIDING SCALE (NOVOLOG) 1 VIAL SQ SCH ×4 (01:30→18:01)
[2017-12-06] MEDS ORDERED: LISINOPRIL 5 MG TABLET (FP) PO ONE ×2 (02:00→18:00)
[2017-12-06 06:39] LABS: BASO % 0.2 % (0-2.0); HEMATOCRIT 37.7 % (32.4-45.2); LYMPH % 9.5 % (8-40); MCHC 31.8 g/dl (32.0-36.0); MEAN CELL VOLUME 84.8 fl (80-96); MEAN PLT VOLUME 10.5 fl (7.5-11.1); NEUT % 86.3 % (42.8-82.8); PLATELET COUNT 224 K/MM3 (134-434); RBC 4.45 M/mm3 (3.60-5.2); WHITE BLOOD COUNT 14.9 K/mm3 (4.0-10.0)
[2017-12-06 07:30] LABS: ALBUMIN 3.2 g/dl (3.4-5.0); ALK PHOS 71 U/L (45-117); ANION GAP 10 MMOL/L (8-16); BILIRUBIN,TOTAL 0.6 mg/dL (0.2-1); BLOOD UREA NITROGEN 8 mg/dL (7-18); CALCIUM 8.2 mg/dL (8.5-10.1); CHLORIDE 99 mmol/L (98-107); CO2 23 mmol/L (21-32); CREATININE 0.5 mg/dL (0.55-1.3); GLUCOSE,RANDOM 196 mg/dL (74-106); MAGNESIUM 2.1 mg/dL (1.8-2.4); PHOSPHOROUS 1.7 mg/dL (2.5-4.9); POTASSIUM 3.9 mmol/L (3.5-5.1); SGOT/AST 15 U/L (15-37); SGPT/ALT 42 U/L (13-61); SODIUM 132 mmol/L (136-145); TOT PROT 6.5 g/dl (6.4-8.2)
[2017-12-06] MEDS: PANTOPRAZOLE SODIUM 40 MG VIAL IVPUSH SCH (10:08)
[2017-12-06] MEDS: LACTATED RINGERS SOLUTION 1,000 ML/1,000 ML INFUS.BAG IV SCH ×2 (10:12→21:49)
[2017-12-06] MEDS ORDERED: LORazepam 2 MG/ML SDV VIAL IM PRN (10:12)
--- NOTE | 2017-12-06 10:12 | CON.PSY ---
Psychiatry Consult Chief Complaint: 67 year old female with a long history of Major Depression and suicide attepts brought to Er by daughter after an arguement over Money> patient apparantly fell inh the ER and w3as shaking. Patient has been vomiting coffee ground substance. patient is al;et and wanmtys to go home. Denies feeling suicidal a5t this time. staff reports she has been [id number]. Symptoms: reports: Depressed Mood, Anxiety - Previous Psychiatric Treatment Outpatient: Less than 6 mos ago Inpatient: One prior admission - Previous Substance Abuse Treatment Outpatient: None Inpatient: None - Reason for Previous Treatment Reason for Previous Treatment: Major Depression - Current Medications Current Medications: Active Medications Lactated Ringer's (Lactated Ringers Solution) 1,000 ml in 1,000 mls @ 100 mls/ hr IV ASDIR IFEOMA Sodium Phosphate 30 mm/ Sodium (Chloride) 260 mls @ 62.5 mls/hr IVPB ONCE ONE Stop: 12/06/17 13:33 Insulin Aspart (Novolog Vial Sliding Scale -) 1 vial SQ Q6H IFEOMA; Protocol Last Admin: 12/06/17 06:41 Dose: Not Given Metoclopramide HCl (Reglan Injection -) 10 mg IVPB Q6H IFEOMA Pantoprazole Sodium (Protonix Iv) 40 mg IVPUSH BID IFEOMA Last Admin: 12/05/17 21:37 Dose: 40 mg - Allergies Allergies: Allergies Allergy/AdvReac Type Severity Reaction Status Date / Time Penicillins Allergy Verified 12/05/17 04:54 - Current Living Status Usual Living Arrangement: With Child - Current Mental Status Evaluation Appearance: Disheveled Attitude: Guarded - Affect Affect: Constrictive Appropriateness: Appropriate to Content - Mood Mood: Depressed - Speech/Language Expressive: Coherent - Psychomotor Activity Psychomotor Activity: Slowed - Thought Process Thought Process: Intact - Thought Content Hallucinations: Absent Delusions: Absent - Self Perception Self Perception: No Impairment - Cognition Attention: Alert Orientation: Time Memory, Immediate Recall: Intact Memory, Short Term: 2/3 Memory, Remote with Promptin/3 - Concentration Serial Sevens Intact: No Simple Calculations Intact: Yes - Abstraction Proverb Interpretation: Intact Judgement: Moderately Impaired - Insight Insight: Impaired - Impulse Control Impulse Control: Minimally Impaired - Suicidal Ideation Suicidal Ideation: No - Homicidal Ideation Homicidal Ideation: No Assessment/Plan 1) D/C 1:1 2) will use Ativan Im prn fotr restlessness. 3) will follow.
[2017-12-06 10:52] LABS: HEMOGLOBIN 12.3 GM/dL (10.7-15.3); MCH 27.9 pg (25.7-33.7); MCHC 33.3 g/dl (32.0-36.0); MEAN PLT VOLUME 10.3 fl (7.5-11.1); PLATELET COUNT 232 K/MM3 (134-434); RBC 4.41 M/mm3 (3.60-5.2); RDW 14.3 % (11.6-15.6); WHITE BLOOD COUNT 15.1 K/mm3 (4.0-10.0)
[2017-12-06] MEDS ORDERED: SODIUM PHOSPHATE - 30 MM in SODIUM CHLORIDE 500 ML IVPB ONE (11:00)
[2017-12-06] MEDS: METOCLOPRAMIDE HCL INJECTION 10 MG/2 ML VIAL IVPB SCH ×2 (11:11→15:22)
[2017-12-06] MEDS ORDERED: PT OWN MED DRAWER 7, Y5N ONE (13:47)
--- NOTE | 2017-12-06 15:33 | PN ---
Physical Exam: SUBJECTIVE: Patient seen and examined. She is intermittently confused. She is hungry. She denies pain. OBJECTIVE: Vital Signs Period Temp Pulse Resp BP Sys/Barrett Pulse Ox Last 24 Hr 97.8 F-100.2 F 87-103 16-22 143-184/65-90 95-96 GENERAL: The patient is awake, alert, in no acute distress. LUNGS: Breath sounds equal, scattered crackles, no accessory muscle use. HEART: Regular rhythm, tachycardic, S1, S2 without murmur, rub or gallop. ABDOMEN: Soft, nontender, nondistended, normoactive bowel sounds, no guarding, no rebound, no hepatosplenomegaly, no masses. EXTREMITIES: 2+ pulses, warm, well-perfused, no edema. Laboratory Results - last 24 hr 12/05/17 12/05/17 12/05/17 16:25 17:00 21:00 WBC 15.9 H 16.4 H RBC 4.32 4.37 Hgb 11.9 12.0 Hct 37.2 36.8 MCV 86.1 84.3 MCH 27.6 27.5 MCHC 32.1 32.6 RDW 14.1 14.1 Plt Count 214 222 MPV 10.3 10.5 Absolute Neuts (auto) Neutrophils % Lymphocytes % Monocytes % Eosinophils % Basophils % Nucleated RBC % Sodium Potassium Chloride Carbon Dioxide Anion Gap BUN Creatinine Creat Clearance w eGFR POC Glucometer 187 Random Glucose Calcium Phosphorus Magnesium Total Bilirubin AST ALT Alkaline Phosphatase Total Protein Albumin 12/06/17 12/06/17 12/06/17 00:50 05:18 05:30 WBC 14.9 H RBC 4.45 Hgb 12.0 Hct 37.7 MCV 84.8 MCH 27.0 MCHC 31.8 L RDW 14.0 Plt Count 224 MPV 10.5 Absolute Neuts (auto) 12.9 H Neutrophils % 86.3 H Lymphocytes % 9.5 D Monocytes % 4.0 Eosinophils % 0.0 Basophils % 0.2 Nucleated RBC % 0 Sodium Potassium Chloride Carbon Dioxide Anion Gap BUN Creatinine Creat Clearance w eGFR POC Glucometer 194 194 Random Glucose Calcium Phosphorus Magnesium Total Bilirubin AST ALT Alkaline Phosphatase Total Protein Albumin 12/06/17 12/06/17 12/06/17 05:30 10:45 12:39 WBC 15.1 H RBC 4.41 Hgb 12.3 Hct 37.0 MCV 84.0 MCH 27.9 MCHC 33.3 RDW 14.3 Plt Count 232 MPV 10.3 Absolute Neuts (auto) Neutrophils % Lymphocytes % Monocytes % Eosinophils % Basophils % Nucleated RBC % Sodium 132 L Potassium 3.9 Chloride 99 Carbon Dioxide 23 Anion Gap 10 BUN 8 Creatinine 0.5 L Creat Clearance w eGFR > 60 POC Glucometer 188 Random Glucose 196 H Calcium 8.2 L Phosphorus 1.7 L Magnesium 2.1 Total Bilirubin 0.6 AST 15 ALT 42 Alkaline Phosphatase 71 Total Protein 6.5 Albumin 3.2 L Active Medications Generic Name Dose Route Start Last Admin Trade Name Freq PRN Reason Stop Dose Admin Lactated Ringer's 1,000 ml in 1,000 mls @ 100 mls/hr 12/05/17 16:14 12/06/17 10:12 Lactated Ringers Solution IV 100 mls/hr ASDIR IFEOMA Administration Sodium Phosphate 30 mm/ Sodium 510 mls @ 62.5 mls/hr 12/06/17 11:00 12/06/17 13:48 Chloride IVPB 12/06/17 19:09 62.5 mls/hr ONCE ONE Administration Insulin Aspart 1 vial 12/05/17 12:17 12/06/17 12:41 Novolog Vial Sliding Scale - SQ Not Given Q6H IFEOMA Protocol Lorazepam 0.5 mg 12/06/17 10:12 12/06/17 11:11 Ativan Injection - IM 0.5 mg TID PRN Administration ANXIETY Metoclopramide HCl 10 mg 12/06/17 09:30 12/06/17 15:22 Reglan Injection - IVPB 10 mg Q6H-IV IFEOMA Administration Pantoprazole Sodium 40 mg 12/05/17 22:00 12/06/17 10:08 Protonix Iv IVPUSH 40 mg BID IFEOMA Administration ASSESSMENT/PLAN: 1. Acute metabolic encephalopathy - Improving - Psych input appreciated - As per daughter, all her pills are accounted for - she has not missed any doses and has not taken any extra. She also says the patient does not drink alcohol. So alcohol/benzo withdrawal would be unlikley, however urine tox negative for benzodiazepines - (+) MDMA in urine tox likely secondary to Wellbutrin and Trazodone - Has leukocytosis, tachycardia, low grade temp, lactic acidemia - Will recheck UA, CXR - Possible seizure - awaiting neuro eval - Continue IV fluid - Restart Klonopin 2. Possible upper GI bleed secondary to Loretta-Tucker tear, gastritis - Hemoglobin stable - No further vomiting - Continue Protonix - Start PO 3. Type 2 DM - Continue Novolog sliding scale 4. Hypophosphatemia - Continue to supplement phosphorus 5. Depression - Restart Wellbutrin, Trazodone 6. HTN - Start Lisinopril Visit type - Emergency Visit Emergency Visit: Yes ED Registration Date: 12/05/17 Care time: The patient presented to the Emergency Department on the above date and was hospitalized for further evaluation of their emergent condition. - New Patient This patient is new to me today: Yes Date on this admission: 12/06/17 - Critical Care Critical Care patient: No - Discharge Referral Referred to [facility] Med P.C.: No
--- NOTE | 2017-12-06 19:06 | PN ---
GI Progress Note Subjective: abdominal pain, nausea and vomiting much improved, poor po intake - Objective Vital Signs: Vital Signs Temperature 99.7 F H 12/06/17 17:00 Pulse Rate 105 H 12/06/17 17:00 Respiratory Rate 20 12/06/17 17:00 Blood Pressure 181/81 H 12/06/17 17:00 O2 Sat by Pulse Oximetry (%) 93 L 12/06/17 15:39 Constitutional: Well Nourished Eyes: Yes: Conjunctiva Clear HENT: Yes: Atraumatic Neck: Yes: Supple Cardiovascular: Yes: Regular Rate and Rhythm Respiratory: Yes: CTA Bilaterally Gastrointestinal Inspection: No: Distention ...Auscultate: Yes: Normoactive Bowel Sounds ...Palpate: Yes: Soft. No: Guarding, Hepatomegaly, Splenomegaly, Tenderness, Tenderness, Epigastium Labs: CBC, BMP 12/06/17 10:45 12/06/17 05:30 INR, PTT INR 1.03 (0.83-1.09) 12/05/17 05:55 Problem List - Problems (1) Coffee ground emesis Assessment/Plan: --resolved R> continue Reglan and Zofran switch toRelan and Protonix as tolerated furhter gi w/u as an outpatient Code(s): K92.0 - HEMATEMESIS
[2017-12-06] MEDS ORDERED: METOCLOPRAMIDE HCL INJECTION 10 MG/2 ML VIAL IVPB SCH (19:15)
--- NOTE | 2017-12-06 20:18 | CONSULT ---
Consult - text type - Consultation Consultation Note: NEUROLOGY CONSULTATION is greatly appreciated: This 67 yo woman lives with her daughter. PMH sig for HTN, DM and chronic psychiatric illness described as depression and anxiety. Maintained on Insulins, lisinopril, wellbutrin (300), Trazodone (150) and clonazepam (.5 BID). Now admitted with lethargy and possible GI bleed. CT of head (reviewed): Mild atrophy and scattered microvascular changes. No acute lesions. EXAM: No head trauma. No bruits. Cor reg. Thin and frail. NEURO: Awake, alert, cooperative. Hypophonic speech [facility], Nov, 2017 Masked facies. Jaw tdremor vs orobuccal lingual dyskinesia No facial weakness. Full adler and EOM's. Gag OK No drift. Rest tremor (6 cps) R>L and Foot> Hand. No obvious weakness. Prominent Cogwheel Rigidity. Brisk reflexes. Withdraws all 4's to pinch. IMP: No obvious focality Mild OMS Parkinsonism, Possibly Parkinson's disease (R/O history of Neuroleptic exposure). SUGGEST: Check B12, TSH, RPR Mobilize OOB to chair with PT. Orthostatic BP's Gait assessment. Try Sinemet CR 25/100: 1/2 PO TID with meals x 2 days then 1 PO TID with meals. D/C Metaclopramide Thank you very much, Booker Garcia MD
[2017-12-06] MEDS: traZODone HCL 50 MG TABLET (FP) PO SCH ×2 (21:50→21:56)
[2017-12-06] MEDS: clonazePAM 0.5 MG TABLET PO SCH (21:50)
[2017-12-06] MEDS: ONDANSETRON 4 MG/2 ML VIAL IVPB SCH (21:50)
[2017-12-06 22:10] LABS: HEMATOCRIT 36.9 % (32.4-45.2); MCH 27.4 pg (25.7-33.7); MCHC 32.5 g/dl (32.0-36.0); MEAN CELL VOLUME 84.2 fl (80-96); MEAN PLT VOLUME 10.5 fl (7.5-11.1); PLATELET COUNT 235 K/MM3 (134-434); RBC 4.39 M/mm3 (3.60-5.2); RDW 14.3 % (11.6-15.6); WHITE BLOOD COUNT 13.2 K/mm3 (4.0-10.0)
[2017-12-07] MEDS: INSULIN SLIDING SCALE (NOVOLOG) 1 VIAL SQ SCH ×4 (00:31→18:52)
[2017-12-07] MEDS: ONDANSETRON 4 MG/2 ML VIAL IVPB SCH ×6 (01:41→21:41)
[2017-12-07 06:28] LABS: BASO % 0.3 % (0-2.0); HEMATOCRIT 37.3 % (32.4-45.2); LYMPH % 12.7 % (8-40); MCH 27.2 pg (25.7-33.7); MCHC 32.3 g/dl (32.0-36.0); MEAN CELL VOLUME 84.1 fl (80-96); MEAN PLT VOLUME 9.9 fl (7.5-11.1); MONO % 8.8 % (3.8-10.2); NEUT % 78.2 % (42.8-82.8); PLATELET COUNT 227 K/MM3 (134-434); RBC 4.43 M/mm3 (3.60-5.2); RDW 14.3 % (11.6-15.6); WHITE BLOOD COUNT 14.6 K/mm3 (4.0-10.0)
[2017-12-07 07:55] LABS: ANION GAP 11 MMOL/L (8-16); BLOOD UREA NITROGEN 12 mg/dL (7-18); CALCIUM 8.6 mg/dL (8.5-10.1); CHLORIDE 103 mmol/L (98-107); CO2 25 mmol/L (21-32); CREATININE 0.4 mg/dL (0.55-1.3); GLUCOSE,RANDOM 182 mg/dL (74-106); MAGNESIUM 2.6 mg/dL (1.8-2.4); PHOSPHOROUS 1.6 mg/dL (2.5-4.9); POTASSIUM 3.3 mmol/L (3.5-5.1); SODIUM 139 mmol/L (136-145)
[2017-12-07] MEDS ORDERED: PT OWN MED DRAWER 7, Y5N ONE (09:10)
[2017-12-07] MEDS ORDERED: PATIENT'S OWN MEDICATION (NON-FORMULARY) (Bupropion Hcl [Wellbutrin Xl] 300 MG) PO SCH (10:00)
--- NOTE | 2017-12-07 10:31 | PN ---
Physical Exam: SUBJECTIVE: Patient seen and examined at the bedside. Anxious, but refusing to take her Klonopin, encouraged to do so. OBJECTIVE: Vital Signs Period Temp Pulse Resp BP Sys/Barrett Pulse Ox Last 24 Hr 98.3 F-100.5 F 84-105 16-28 141-181/75-88 93-97 GENERAL: The patient is awake, alert to person and place, not time, having episodes of anxiety. HEAD: Normal with no signs of trauma. EYES: PERRL, extraocular movements intact, sclera anicteric, conjunctiva clear. No ptosis. ENT: Ears normal, nares patent, oropharynx clear without exudates, moist mucous membranes. NECK: Trachea midline, full range of motion, supple. LUNGS: Breath sounds equal, clear to auscultation bilaterally HEART: Regular rate and rhythm, ABDOMEN: Soft, nontender, nondistended, normoactive bowel sounds, no guarding, no rebound, no hepatosplenomegaly, no masses. EXTREMITIES: no edema. NEUROLOGICAL: Normal speech, gait not observed. PSYCH: Normal mood, normal affect. SKIN: Warm, dry, normal turgor, no rashes or lesions noted Laboratory Results - last 24 hr 12/05/17 12/06/17 12/06/17 09:10 10:45 12:39 WBC 15.1 H RBC 4.41 Hgb 12.3 Hct 37.0 MCV 84.0 MCH 27.9 MCHC 33.3 RDW 14.3 Plt Count 232 MPV 10.3 Absolute Neuts (auto) Neutrophils % Lymphocytes % Monocytes % Eosinophils % Basophils % Nucleated RBC % Sodium Potassium Chloride Carbon Dioxide Anion Gap BUN Creatinine Creat Clearance w eGFR POC Glucometer 188 Random Glucose Lactic Acid Calcium Phosphorus Magnesium Vitamin B12 TSH RPR Titer Lyme Screen IgG & IgM <0.91 12/06/17 12/06/17 12/07/17 17:54 22:00 00:28 WBC 13.2 H RBC 4.39 Hgb 12.0 Hct 36.9 MCV 84.2 MCH 27.4 MCHC 32.5 RDW 14.3 Plt Count 235 MPV 10.5 Absolute Neuts (auto) Neutrophils % Lymphocytes % Monocytes % Eosinophils % Basophils % Nucleated RBC % Sodium Potassium Chloride Carbon Dioxide Anion Gap BUN Creatinine Creat Clearance w eGFR POC Glucometer 179 181 Random Glucose Lactic Acid Calcium Phosphorus Magnesium Vitamin B12 TSH RPR Titer Lyme Screen IgG & IgM 12/07/17 12/07/17 12/07/17 05:30 05:30 05:30 WBC 14.6 H RBC 4.43 Hgb 12.0 Hct 37.3 MCV 84.1 MCH 27.2 MCHC 32.3 RDW 14.3 Plt Count 227 MPV 9.9 Absolute Neuts (auto) 11.4 H Neutrophils % 78.2 Lymphocytes % 12.7 D Monocytes % 8.8 D Eosinophils % 0.0 Basophils % 0.3 Nucleated RBC % 0 Sodium 139 Potassium 3.3 L Chloride 103 Carbon Dioxide 25 Anion Gap 11 BUN 12 Creatinine 0.4 L Creat Clearance w eGFR > 60 POC Glucometer Random Glucose 182 H Lactic Acid 0.9 Calcium 8.6 Phosphorus 1.6 L Magnesium 2.6 H Vitamin B12 601 TSH 2.95 RPR Titer Lyme Screen IgG & IgM 12/07/17 12/07/17 12/07/17 05:30 05:30 06:04 WBC RBC Hgb Hct MCV MCH MCHC RDW Plt Count MPV Absolute Neuts (auto) Neutrophils % Lymphocytes % Monocytes % Eosinophils % Basophils % Nucleated RBC % Sodium Potassium Chloride Carbon Dioxide Anion Gap BUN Creatinine Creat Clearance w eGFR POC Glucometer 175 Random Glucose Lactic Acid Calcium Phosphorus Magnesium Vitamin B12 Cancelled TSH RPR Titer Nonreactive Lyme Screen IgG & IgM Active Medications Generic Name Dose Route Start Last Admin Trade Name Freq PRN Reason Stop Dose Admin Bupropion HCl 300 mg 12/07/17 10:00 Wellbutrin Xl - PO DAILY IFEOMA Carbidopa/Levodopa 0.5 combo 12/07/17 08:00 Sinemet *Cr* 25/100 - PO 12/09/17 17:31 TIDCM IFEOMA Carbidopa/Levodopa 1 combo 12/10/17 08:00 Sinemet *Cr* 25/100 - PO TIDCM IFEOMA Clonazepam 0.5 mg 12/06/17 22:00 12/06/17 21:50 Klonopin - PO 0.5 mg BID IFEOMA Administration Lactated Ringer's 1,000 ml in 1,000 mls @ 100 mls/hr 12/05/17 16:14 12/06/17 21:49 Lactated Ringers Solution IV 100 mls/hr ASDIR IFEOMA Administration Insulin Aspart 1 vial 12/05/17 12:17 12/07/17 06:35 Novolog Vial Sliding Scale - SQ 2 units Q6H IFEOMA Administration Protocol Lisinopril 10 mg 12/07/17 10:00 Prinivil PO DAILY IFEOMA Ondansetron HCl 4 mg 12/06/17 20:00 12/07/17 06:34 Zofran Injection IVPB Not Given Q4H-IV IFEOMA Pantoprazole Sodium 40 mg 12/07/17 10:00 Protonix - PO DAILY IFEOMA Potassium Phos/Sodium Phos 1 packet 12/07/17 10:00 Phos-Nak Packet - PO BID IFEOMA Trazodone HCl 150 mg 12/06/17 22:00 12/06/17 21:56 Desyrel - PO Not Given HS IFEOMA ASSESSMENT/PLAN: Patient is a 67 year old female with a significant past medical history of hypertension, diabetes, depression and anxiety. She presents to the ED with altered mentation, lethargy, possible seizure and one episode of coffee ground emesis. Imaging: CT of head: mild atrophy and scattered microvascular changes. Neuro Acute toxic metabolic encepholapathy. improving. clear speech, now with mild tremors at rest. Denies any dizziness, lightheadedness. Recalls some of the events that led her to the hospital. Denies ETOH or drug use. +ecstasy in urine , but may be false pos? secondary to Wellbutrin and Trazadone?. Rule out seizure. no reported seizures during hospitalization. Ct negative for acute process. Neuro following Anxiety/depression. Restart home medications (wellbutrin, trazadone, klonopin). Seen by psyche. Possible Parkinsonism, Parkinson. Per neuro, start on Parkinsons medications. ID: Rule out acute infection. Has leukocytosis @ 14.6, mild tachycarida and now with low grade temps. Will recehck UA. If WBC remains elevated, will panculture and restart proph antibiotics. GI: Coffee ground emesis reported on admission, non since. Started on Protonix. GI following. Endocrine Diabetes. SS, BGMs Electrolyte imbalance Hypermag, mild: monitor Hypok: supplement Hypophos: Phos jojo bid fen LR 100 monitor electrolytes and supplement encourage PO intake, will add supplements prophy scds protonix Visit type - Emergency Visit Emergency Visit: Yes ED Registration Date: 12/05/17 Care time: The patient presented to the Emergency Department on the above date and was hospitalized for further evaluation of their emergent condition. - New Patient This patient is new to me today: Yes Date on this admission: 12/07/17 - Critical Care Critical Care patient: No - Discharge Referral Referred to [facility] Med P.C.: No
[2017-12-07] MEDS: clonazePAM 0.5 MG TABLET PO SCH ×3 (10:41→21:40)
[2017-12-07] MEDS: PANTOPRAZOLE 40 MG TABLET (FP) PO SCH (10:43)
[2017-12-07] MEDS: LISINOPRIL 10 MG TABLET (FP) PO SCH (10:43)
[2017-12-07] MEDS: NAPH,MB-DB/K PH,MBDB POWDER PACKET PO SCH ×2 (10:43→21:41)
[2017-12-07 11:59] LABS: URINE APPEARANCE CLEAR; URINE BILIRUBIN NEGATIVE (<2.0 mg/dL); URINE COLOR LTYELLOW; URINE GLUCOSE (UA) 3+ (NEGATIVE); URINE KETONE 2+ (NEGATIVE); URINE LEUK ESTERASE TRACE (NEGATIVE); URINE NITRITE NEGATIVE (NEGATIVE); URINE PROTEIN NEGATIVE (NEGATIVE); URINE UROBILINOGEN NEGATIVE mg/dL (0.2-1.0)
[2017-12-07 12:24] LABS: EPI CELLS RARE /HPF (FEW); YEAST FEW
[2017-12-07] MEDS: LACTATED RINGERS SOLUTION 1,000 ML/1,000 ML INFUS.BAG IV SCH (16:17)
[2017-12-07] MEDS: traZODone HCL 50 MG TABLET (FP) PO SCH (21:40)
[2017-12-08] MEDS: ONDANSETRON 4 MG/2 ML VIAL IVPB SCH ×6 (02:30→22:23)
[2017-12-08] MEDS: INSULIN SLIDING SCALE (NOVOLOG) 1 VIAL SQ SCH ×4 (03:20→17:47)
[2017-12-08 09:51] LABS: BASO % 0.4 % (0-2.0); EOS % 0.1 % (0-4.5); HEMATOCRIT 36.4 % (32.4-45.2); HEMOGLOBIN 11.8 GM/dL (10.7-15.3); LYMPH % 16.7 % (8-40); MCH 27.2 pg (25.7-33.7); MCHC 32.4 g/dl (32.0-36.0); MEAN CELL VOLUME 84.2 fl (80-96); MEAN PLT VOLUME 9.9 fl (7.5-11.1); MONO % 8.2 % (3.8-10.2); NEUT % 74.6 % (42.8-82.8); PLATELET COUNT 225 K/MM3 (134-434); RBC 4.33 M/mm3 (3.60-5.2); RDW 14.1 % (11.6-15.6); WHITE BLOOD COUNT 11.5 K/mm3 (4.0-10.0)
[2017-12-08] MEDS: clonazePAM 0.5 MG TABLET PO SCH ×2 (09:59→22:22)
[2017-12-08] MEDS: PANTOPRAZOLE 40 MG TABLET (FP) PO SCH (10:01)
[2017-12-08] MEDS: LISINOPRIL 10 MG TABLET (FP) PO SCH (10:01)
[2017-12-08] MEDS: NAPH,MB-DB/K PH,MBDB POWDER PACKET PO SCH ×2 (10:02→22:22)
[2017-12-08 10:51] LABS: ALK PHOS 73 U/L (45-117); ANION GAP 8 MMOL/L (8-16); BILIRUBIN,TOTAL 0.6 mg/dL (0.2-1); BLOOD UREA NITROGEN 15 mg/dL (7-18); CALCIUM 8.1 mg/dL (8.5-10.1); CHLORIDE 103 mmol/L (98-107); CO2 25 mmol/L (21-32); CREATININE 0.4 mg/dL (0.55-1.3); GLUCOSE,RANDOM 224 mg/dL (74-106); MAGNESIUM 2.4 mg/dL (1.8-2.4); POTASSIUM 3.5 mmol/L (3.5-5.1); SGOT/AST 27 U/L (15-37); SGPT/ALT 41 U/L (13-61); SODIUM 136 mmol/L (136-145); TOT PROT 6.2 g/dl (6.4-8.2)
[2017-12-08 12:23] LABS: URINE APPEARANCE CLEAR; URINE BILIRUBIN NEGATIVE (<2.0 mg/dL); URINE COLOR LTYELLOW; URINE GLUCOSE (UA) 3+ (NEGATIVE); URINE KETONE 1+ (NEGATIVE); URINE LEUK ESTERASE TRACE (NEGATIVE); URINE NITRITE NEGATIVE (NEGATIVE); URINE PROTEIN NEGATIVE (NEGATIVE); URINE UROBILINOGEN 4.0 E.U/dl mg/dL (0.2-1.0)
[2017-12-08 12:27] LABS: EPI CELLS RARE /HPF (FEW); URINE MUCUS RARE
[2017-12-08] MEDS: LACTATED RINGERS SOLUTION 1,000 ML/1,000 ML INFUS.BAG IV SCH (16:54)
[2017-12-08] MEDS: traZODone HCL 50 MG TABLET (FP) PO SCH (22:22)
[2017-12-09] MEDS: ONDANSETRON 4 MG/2 ML VIAL IVPB SCH ×3 (03:23→10:04)
[2017-12-09] MEDS: INSULIN SLIDING SCALE (NOVOLOG) 1 VIAL SQ SCH ×3 (03:23→13:00)
--- NOTE | 2017-12-09 07:37 | PN ---
Physical Exam: SUBJECTIVE: Patient seen and examined OBJECTIVE: mental status improving daughter at bedside, explained POC to daughter. Neuro recommendations reviewed with daughter who refused her mother to start Sinemet. Vital Signs Period Temp Pulse Resp BP Sys/Barrett Pulse Ox Last 24 Hr 98.2 F-98.8 F 72-84 18-20 140-177/69-83 97-97 GENERAL: The patient is awake, alert to person and place, not time, having episodes of anxiety. HEAD: Normal with no signs of trauma. EYES: PERRL, extraocular movements intact, sclera anicteric, conjunctiva clear. No ptosis. ENT: Ears normal, nares patent, oropharynx clear without exudates, moist mucous membranes. NECK: Trachea midline, full range of motion, supple. LUNGS: Breath sounds equal, clear to auscultation bilaterally HEART: Regular rate and rhythm, ABDOMEN: Soft, nontender, nondistended, normoactive bowel sounds, no guarding, no rebound, no hepatosplenomegaly, no masses. EXTREMITIES: no edema. NEUROLOGICAL: Normal speech, gait not observed. PSYCH: Normal mood, normal affect. SKIN: Warm, dry, normal turgor, no rashes or lesions noted Laboratory Results - last 24 hr 12/08/17 12/08/17 12/08/17 09:20 09:20 10:39 WBC 11.5 H RBC 4.33 Hgb 11.8 Hct 36.4 MCV 84.2 MCH 27.2 MCHC 32.4 RDW 14.1 Plt Count 225 MPV 9.9 Absolute Neuts (auto) 8.6 H Neutrophils % 74.6 Lymphocytes % 16.7 D Monocytes % 8.2 Eosinophils % 0.1 D Basophils % 0.4 Nucleated RBC % 0 Sodium 136 Potassium 3.5 Chloride 103 Carbon Dioxide 25 Anion Gap 8 BUN 15 Creatinine 0.4 L Creat Clearance w eGFR > 60 POC Glucometer 275 Random Glucose 224 H Calcium 8.1 L Magnesium 2.4 Total Bilirubin 0.6 AST 27 ALT 41 Alkaline Phosphatase 73 Total Protein 6.2 L Albumin 3.0 L Urine Color Urine Appearance Urine pH Ur Specific [place] Urine Protein Urine Glucose (UA) Urine Ketones Urine Blood Urine Nitrite Urine Bilirubin Urine Urobilinogen Ur Leukocyte Esterase Urine WBC (Auto) Urine RBC (Auto) Ur Epithelial Cells Urine Mucus 12/08/17 12/08/17 12/09/17 11:47 17:02 06:05 WBC RBC Hgb Hct MCV MCH MCHC RDW Plt Count MPV Absolute Neuts (auto) Neutrophils % Lymphocytes % Monocytes % Eosinophils % Basophils % Nucleated RBC % Sodium Potassium Chloride Carbon Dioxide Anion Gap BUN Creatinine Creat Clearance w eGFR POC Glucometer 219 191 Random Glucose Calcium Magnesium Total Bilirubin AST ALT Alkaline Phosphatase Total Protein Albumin Urine Color Ltyellow Urine Appearance Clear Urine pH 7.0 Ur Specific [place] 1.015 Urine Protein Negative Urine Glucose (UA) 3+ H Urine Ketones 1+ H Urine Blood Negative Urine Nitrite Negative Urine Bilirubin Negative Urine Urobilinogen 4.0 e.u/dl H Ur Leukocyte Esterase Trace Urine WBC (Auto) 9 Urine RBC (Auto) 1 Ur Epithelial Cells Rare Urine Mucus Rare Active Medications Generic Name Dose Route Start Last Admin Trade Name Freq PRN Reason Stop Dose Admin Bupropion HCl 300 mg 12/07/17 10:00 12/08/17 10:01 Wellbutrin Xl - PO 300 mg DAILY IFEOMA Administration Clonazepam 0.5 mg 12/06/17 22:00 12/08/17 22:22 Klonopin - PO 0.5 mg BID IFEOMA Administration Lactated Ringer's 1,000 ml in 1,000 mls @ 100 mls/hr 12/05/17 16:14 12/08/17 16:54 Lactated Ringers Solution IV 100 mls/hr ASDIR IFEOMA Administration Insulin Aspart 1 vial 12/05/17 12:17 12/09/17 06:06 Novolog Vial Sliding Scale - SQ Not Given Q6H IFEOMA Protocol Lisinopril 10 mg 12/07/17 10:00 12/08/17 10:01 Prinivil PO 10 mg DAILY IFEOMA Administration Ondansetron HCl 4 mg 12/06/17 20:00 12/09/17 06:05 Zofran Injection IVPB Not Given Q4H-IV IFEOMA Pantoprazole Sodium 40 mg 12/07/17 10:00 12/08/17 10:01 Protonix - PO 40 mg DAILY IFEOMA Administration Potassium Phos/Sodium Phos 1 packet 12/07/17 10:00 12/08/17 22:22 Phos-Nak Packet - PO 1 packet BID IFEOMA Administration Trazodone HCl 150 mg 12/06/17 22:00 12/08/17 22:22 Desyrel - PO 150 mg HS IFEOMA Administration ASSESSMENT/PLAN: Patient is a 67 year old female with a significant past medical history of hypertension, diabetes, depression and anxiety. She presents to the ED with altered mentation, lethargy, possible seizure and one episode of coffee ground emesis. Imaging: CT of head: mild atrophy and scattered microvascular changes. Neuro Acute toxic metabolic encepholapathy. resolved clear speech, no tremors at rest. Denies any dizziness, lightheadedness. Recalls some of the events that led her to the hospital. Denies ETOH or drug use. +ecstasy in urine, but may be false pos? secondary to Wellbutrin and Trazadone?. Rule out seizure. no reported seizures during hospitalization. Ct negative for acute process. Neuro following Anxiety/depression. Restart home medications (wellbutrin, trazadone, klonopin). Seen by psyche. Possible Parkinsonism, Parkinson. Per neuro, start on Parkinsons medications. daughter refusing this med. ID: Rule out acute infection. Has leukocytosis @ 11.5, no signs of infection. monitor. GI: Coffee ground emesis reported on admission, now resolved Started on Protonix. GI following. Endocrine Diabetes. SS, BGMs fen LR 100 monitor electrolytes and supplement encourage PO intake, will add supplements prophy scds protonix Visit type - Emergency Visit Emergency Visit: Yes ED Registration Date: 12/05/17 Care time: The patient presented to the Emergency Department on the above date and was hospitalized for further evaluation of their emergent condition. - New Patient This patient is new to me today: No - Critical Care Critical Care patient: No - Discharge Referral Referred to [facility] Med P.C.: No
[2017-12-09] MEDS ORDERED: PT OWN MED DRAWER 7, Y5N ONE (08:48)
[2017-12-09] MEDS: PANTOPRAZOLE 40 MG TABLET (FP) PO SCH (09:04)
[2017-12-09] MEDS: LISINOPRIL 10 MG TABLET (FP) PO SCH (09:04)
[2017-12-09] MEDS: clonazePAM 0.5 MG TABLET PO SCH (09:04)
[2017-12-09] MEDS: NAPH,MB-DB/K PH,MBDB POWDER PACKET PO SCH (09:04)
--- NOTE | 2017-12-09 12:42 | DS ---
Physical Exam: SUBJECTIVE: Patient seen and examined at the bedside. In no acute distress, denies pain. no headache, no dizziness OBJECTIVE: Vital Signs Period Temp Pulse Resp BP Sys/Barrett Pulse Ox Last 24 Hr 98.2 F-98.8 F 72-84 18-20 140-180/69-84 95-97 PHYSICAL EXAM GENERAL: The patient is awake, alert to person and place, and now time. HEAD: Normal with no signs of trauma. EYES: PERRL, extraocular movements intact, sclera anicteric, conjunctiva clear. No ptosis. ENT: Ears normal, nares patent, oropharynx clear without exudates, moist mucous membranes. NECK: Trachea midline, full range of motion, supple. LUNGS: Breath sounds equal, clear to auscultation bilaterally HEART: Regular rate and rhythm, ABDOMEN: Soft, nontender, nondistended, normoactive bowel sounds, no guarding, no rebound, no hepatosplenomegaly, no masses. EXTREMITIES: no edema. NEUROLOGICAL: Normal speech, gait not observed. PSYCH: Normal mood, normal affect. SKIN: Warm, dry, normal turgor, no rashes or lesions noted LABS Laboratory Results - last 24 hr 12/08/17 12/09/17 12/09/17 17:02 05:30 06:05 POC Glucometer 219 191 Phosphorus 2.4 L 12/09/17 11:42 POC Glucometer 230 Phosphorus HOSPITAL COURSE: Date of Admission:12/05/17 Date of Discharge: 12/09/17 Patient is a 67 year old female with a significant past medical history of hypertension, diabetes, depression and anxiety. She presents to the ED with altered mentation, lethargy, possible seizure and one episode of coffee ground emesis. Imaging: CT of head: mild atrophy and scattered microvascular changes. Neuro Acute toxic metabolic encepholapathy. resolved clear speech, no tremors at rest. Denies any dizziness, lightheadedness. Recalls some of the events that led her to the hospital. Denies ETOH or drug use. +ecstasy in urine, but may be false pos? secondary to Wellbutrin and Trazadone?. Rule out seizure. no reported seizures during hospitalization. Ct negative for acute process. Neuro following Anxiety/depression. Restart home medications (wellbutrin, trazadone, klonopin). Seen by psyche. Possible Parkinsonism, Parkinson. Per neuro, start on Parkinsons medications. daughter refusing this med, will discontinue at her request. Encourage outpatient neurology follow up ID: Rule out acute infection. Has leukocytosis @ 11.5, no signs of infection. monitor. GI: Coffee ground emesis reported on admission, now resolved Started on Protonix. GI follow up outpatient. Endocrine Diabetes. SS, BGMs full code Minutes to complete discharge: 60 Discharge Summary Reason For Visit: SEIZURE, NAUSEA AND VOMITING IN ADULT PATIENT Current Active Problems Coffee ground emesis (Acute) Seizure (Acute) Condition: Improved - Instructions Diet, Activity, Other Instructions: Mr. Odell Quigley: You were admitted on 12/05/17 for a possible seizure, nausea and vomiting. We are happy to say that you are cleared for discharge home and will need to follow up with Dr. Heard on discharge for hospital follow up. We have made an appointment for you to see your physician Dr. Heard on December 16 at 10:15a.m. I have also referred you to a Neurologist for follow up. Thank you for allowing us to care for you. NEW MEDS: Protonix 40mg daily. We started this medication because you vomited up some blood when you were admitted. We recommend that you continue this medication daily and stop the Nexium. Please follow up with Dr. Lujan for workup. He is a crate icer. Lisinipril 10mg. New medication to treat your hypertension. Please follow up with your doctor to continue to monitor our blood pressure. C[facility] [employer] [facility] @ [facility] [phone] Referrals: Booker Garcia MD [Staff Physician] - 2 Weeks Manuel Lujan MD [Staff Physician] - 1 Week Lang Heard MD [Staff Physician] - 1 Week (saturday, next december 16 @ 10:15 a.m) Disposition: VNS/HOME HEALTH CARE - Home Medications Comprehensive Discharge Medication List: Ambulatory Orders Bupropion HCl [Wellbutrin Xl] 300 mg PO DAILY 11/13/17 Clonazepam [Klonopin] 1 mg PO BID 11/13/17 Esomeprazole Magnesium [Nexium 24Hr] 20 mg PO DAILY 11/13/17 Sitagliptin Phosphate [Januvia] 25 mg PO DAILY 11/13/17 Trazodone HCl 1 tab PO DAILY 11/13/17 This patient is new to me today: Yes Date on this admission: 12/09/17 Emergency Visit: No Critical Care patient: No - Discharge Referral Referred to [facility] Med P.C.: No
[2017-12-09 15:15] VITALS: BP 166/77; PULSE 74; TEMP 98.6
== END 2017-12-09 18:47 | disposition home health service (06) | DRG 377 ==
LOC: JER 04:43 → JERBED 10:42 → J4W 15:18
PROVIDERS: ADMIT Internal Medicine; ATTEND Nurse Practitioner Family
DX: K29.71 Gastritis, unspecified, with bleeding (principal); G92 Toxic encephalopathy; E87.2 Acidosis; R45.851 Suicidal ideations; R56.9 Unspecified convulsions; E11.9 Type 2 diabetes mellitus without complications; G20 Parkinson's disease; F41.8 Other specified anxiety disorders; I10 Essential (primary) hypertension; D72.829 Elevated white blood cell count, unspecified; E83.41 Hypermagnesemia; E87.6 Hypokalemia; E83.39 Other disorders of phosphorus metabolism
CPT/HCPCS: 36415; 36600; 70450-TC; 71045-TC-FY; 74177-TC; 80048; 80053; 80307; 81003; 81015; 82140; 82272; 82375; 82607; 82803; 82962; 83050; 83605; 83735; 83930; 84100; 84443; 84484; 85025; 85027; 85610; 86593; 86618; 86850; 86900; 86901; 87040; 87086; 93005; 93010; 97116-GP; 97162-GP; 99285-25; G0480; J7030